=== PATIENT | male | born 1950 | race Caucasian/White ===

== ENCOUNTER 2017-08-07 17:13 | Inpatient (IN) | payer OTHER ==
[~2017-08-07] VITALS: Ht 177.8 cm; Wt 96.6 kg
[2017-08-07] MEDS ORDERED: KETOROLAC TROMETHAMINE 30 MG/ML VIAL IV STA (17:24)
[2017-08-07] MEDS ORDERED: ONDANSETRON INJ 2 MG/ML 2 ML VIAL IV STA (17:24)
[2017-08-07] MEDS ORDERED: LIDODERM (LIDOCAINE) PATCH 5% TD STA (17:24)
[2017-08-07] MEDS ORDERED: HYDROmorphone INJ 1 MG/ML SYR IV STA (17:24)
--- NOTE | 2017-08-07 17:25 | EMERGENCY ROOM VISIT NOTE ---
History Report prepared by Jeffrey: Mckayla Saenz Under the Supervision of: Dr. Oscar Vega M.D. First contact with patient: 17:16 Stated Complaint: BACK & RIB PAIN History of Present Illness The patient is a 67 year old male who presents to the Emergency Room with complaints of worsening left sided back and rib pain beginning 4 days ago. The patient notes that 4 days ago he was pulled over by his dog and fell on his back. Seven years ago, the patient was diagnosed with cracked ribs and states his pain is identical to his pain then. The patient's pain worsens with walking. This morning, the patient coughed and his back pain worsened. He has been taking Ibuprofen over the past four days and last took it 9 hours ago. The patient laid down this afternoon and has not been able to sit up since. The patient denies any abdominal pain and is not on any blood thinners. Source of History: patient Onset: 4 days ago Position: other (rib) Timing: worsening Modifying Factors (Worsening): movement Associated Symptoms: + back pain, No abdominal pain Review of Systems See HPI for pertinent positives & negatives. A total of 10 systems reviewed and were otherwise negative. Past Medical & Surgical Medical Problems: (1) No Known Active Medical Problems Family History No pertinent family history stated. Social History Alcohol Use: occasionally Marital Status: Current/Historical Medications Scheduled PRN Ibuprofen (Motrin), 400 MG PO TID PRN for Headache or Pain Allergies Coded Allergies: No Known Allergies (Unverified , 08/07/17) Physical Exam Vital Signs Date Time Temp Pulse Resp B/P (MAP) Pulse Ox O2 Delivery O2 Flow Rate FiO2 08/07/17 19:42 139/75 08/07/17 18:43 69 19 90 08/07/17 18:42 131/90 08/07/17 18:30 142/79 08/07/17 18:28 77 20 93 08/07/17 18:13 75 23 08/07/17 18:09 70 08/07/17 18:00 134/79 08/07/17 17:46 94 Room Air 08/07/17 17:46 94 Room Air 08/07/17 17:20 36.7 84 20 157/93 94 Room Air Physical Exam GENERAL: Patient is a healthy-appearing well-nourished male HEAD: Normocephalic atraumatic EYES: Ocular movements intact pupils equal and react to light OROPHARYNX mucous membranes are moist no exudates present no erythema or edema present NECK: Supple no nuchal rigidity CHEST: Exquisitely tender to left 10 and 11 rib area. The patient is unable to rollover. LUNGS: Clear and equal to auscultation CARDIAC: Normal S1 and S2 ABDOMEN: Soft nontender no guarding BACK: No CVA tenderness EXTREMITIES: No pain upon palpation normal muscle strength in all groups no clubbing cyanosis or edema NEURO: Patient is following commands and answering questions appropriately. Alert and oriented x3 Cranial Nerves 2-12 grossly intact Medical Decision & Procedures ER Provider Diagnostic Interpretation: Radiology results as stated below per my review and radiologist interpretation: (CHEST) THORAX WITH FINDINGS: Chili Maker topogram: Unremarkable. On soft tissue windows, normal thyroid and thoracic inlet. Asymmetric prominence of left axillary lymph nodes, which measure up to 8 mm in the short axis. Enlarged mediastinal lymph nodes with conglomerate lymphadenopathy in the pretracheal and subcarinal regions. Conglomerate bilateral hilar lymphadenopathy. Prominent right cardiophrenic lymph node. Atherosclerosis of the aorta. Minimal aortic valve and coronary artery calcification. Normal heart size. Trace left pleural effusion. No pericardial effusion. Congenital hypoplasia of the medial segments of the left hepatic lobe. 2 well-defined hypodensities in the liver indeterminate but likely hepatic cysts. Multiple enlarged mesenteric lymph nodes noted. Borderline enlarged retroperitoneal lymphadenopathy. On lung windows, bilateral extensive bandlike opacities at the lung bases with associated lower lobe volume loss, likely atelectasis. No other focal infiltrate. Airways patent. On bone windows, degenerative changes of the spine. Lucent lesion in the left humeral head. Suggestion of nondisplaced anterior right rib fractures involving the right third through sixth ribs. Suggestion of multiple old healed posterior right rib fractures. Acute fracture of the left posterior eighth through 10th ribs. IMPRESSION: 1. Bilateral acute rib fractures. 2. Extensive bibasilar opacities with volume loss likely atelectasis. 3. Extensive lymphadenopathy prominently involving the mediastinum and shanel with additional sites of involvement as above, including below the diaphragm. This is highly concerning for metastatic disease or lymphoma. 4. Indeterminate lucent lesion in the left humeral head. Metastatic lesion not excluded. Electronically signed by: Marcos Gomez M.D. THORACIC SPINE WITHOUT FINDINGS: Chili Maker topogram: Unremarkable. Normal thoracic kyphosis. Vertebral bodies maintain normal height and alignment. Intervertebral disc spaces preserved. No acute fracture or subluxation. Acute rib fractures better appreciated on dedicated chest CT. Multilevel degenerative changes. Osseous neural foraminal narrowing suggested in the mid to lower thoracic spine greater on the left. Paraspinal soft tissues remarkable for partially visualized extensive lymphadenopathy better appreciated on CT chest. IMPRESSION: 1. No acute osseous injury of the thoracic spine. 2. Please see separately dictated CT of the chest for description of acute bilateral rib fractures and extensive lymphadenopathy. Electronically signed by: Marcos Gomez M.D. Laboratory Results 08/07/17 17:40 Red Blood Count 4.77, Mean Corpuscular Volume 87.8, Mean Corpuscular Hemoglobin 30.6, Mean Corpuscular Hemoglobin Concent 34.8, Mean Platelet Volume 8.8, Neutrophils (%) (Auto) 83.0, Lymphocytes (%) (Auto) 8.6, Monocytes (%) (Auto) 7.0, Eosinophils (%) (Auto) 0.6, Basophils (%) (Auto) 0.4, Neutrophils # (Auto) 5.92, Lymphocytes # (Auto) 0.61, Monocytes # (Auto) 0.50, Eosinophils # (Auto) 0.04, Basophils # (Auto) 0.03 08/07/17 17:40 Test 08/07/17 17:40 White Blood Count 7.13 K/uL (4.8-10.8) Red Blood Count 4.77 M/uL (4.7-6.1) Hemoglobin 14.6 g/dL (14.0-18.0) Hematocrit 41.9 % (42-52) Mean Corpuscular Volume 87.8 fL (80-100) Mean Corpuscular Hemoglobin 30.6 pg (25-34) Mean Corpuscular Hemoglobin Concent 34.8 g/dl (32-36) Platelet Count 171 K/uL (130-400) Mean Platelet Volume 8.8 fL (7.4-10.4) Neutrophils (%) (Auto) 83.0 % Lymphocytes (%) (Auto) 8.6 % Monocytes (%) (Auto) 7.0 % Eosinophils (%) (Auto) 0.6 % Basophils (%) (Auto) 0.4 % Neutrophils # (Auto) 5.92 K/uL (1.4-6.5) Lymphocytes # (Auto) 0.61 K/uL (1.2-3.4) Monocytes # (Auto) 0.50 K/uL (0.11-0.59) Eosinophils # (Auto) 0.04 K/uL (0-0.5) Basophils # (Auto) 0.03 K/uL (0-0.2) RDW Standard Deviation 42.2 fL (36.4-46.3) RDW Coefficient of Variation 13.2 % (11.5-14.5) Immature Granulocyte % (Auto) 0.4 % Immature Granulocyte # (Auto) 0.03 K/uL (0.00-0.02) Anion Gap 7.0 mmol/L (3-11) Est Creatinine Clear Calc Drug Dose 94.3 ml/min Estimated GFR () 100.7 Estimated GFR (Non- 86.9 BUN/Creatinine Ratio 27.5 (10-20) Calcium Level 8.9 mg/dl (8.5-10.1) Total Bilirubin 0.5 mg/dl (0.2-1) Direct Bilirubin 0.2 mg/dl (0-0.2) Aspartate Amino Transf (AST/SGOT) 16 U/L (15-37) Alanine Aminotransferase (ALT/SGPT) 23 U/L (12-78) Alkaline Phosphatase 87 U/L (45-117) Total Creatine Kinase 96 U/L (39-308) Total Protein 6.8 gm/dl (6.4-8.2) Albumin 3.7 gm/dl (3.4-5.0) Labs reviewed by ED physician. Medications Administered Medications (Trade) Dose Ordered Sig/Ely Route Start Time Stop Time Status Last Admin Dose Admin Hydromorphone HCl (Dilaudid Inj) 1 mg NOW STAT IV 08/07/17 17:24 08/07/17 17:26 DC 08/07/17 17:24 1 MG Ketorolac Tromethamine (Toradol Inj) 30 mg NOW STAT IV 08/07/17 17:24 08/07/17 17:26 DC 08/07/17 18:01 30 MG Lidocaine (Lidoderm Patch 5%) 1 patch NOW STAT TD 08/07/17 17:24 08/07/17 17:26 DC 08/07/17 17:24 1 PATCH Ondansetron HCl (Zofran Inj) 4 mg NOW STAT IV 08/07/17 17:24 08/07/17 17:26 DC 08/07/17 18:01 4 MG ED Course 1716: Past medical records reviewed. The patient was evaluated in room C10. A complete history and physical examination was performed. 1723: Zofran Inj 4 mg IV, Lidocaine 1 patch TD, Toradol Inj 30 mg IV, Dilaudid Inj 1 mg IV. 1929: I updated the patient on his test results. 1936: I discussed the patient's case with Dr. Zuniga, he has agreed to evaluate the patient for further management and care. Medical Decision Differential diagnosis: Etiologies such as fracture, dislocation, intra-abdominal, pneumothorax, intrathoracic , intracranial, neurologic, as well as other traumatic pathologies were entertained. This is a 67-year-old male who presents emergency department complaining of low back pain after a fall at home several days ago. The patient is exquisitely tender to the left 11th and 10th rib area. An IV was established, the patient was given Dilaudid. His laboratory results are essentially normal. The patient was sent for CAT scan of his chest as well as his thoracic spine based on where his pain was. Serial abdominal examinations were performed on the patient in the emergency department and no tended to the patient exhibit a surgical abdomen or abdominal tenderness. The patient was sent for a CAT scan which was concerning for multiple rib fractures along with a large amount of lymphadenopathy. This patient does not have a primary care physician and based on this along with the fact and I'm having difficulty getting his pain under control I felt he should be admitted for a cancer workup. I did discuss the case with the hospitalist service who agreed to admit the patient. Patient was in agreement with the treatment plan. Blood Pressure Screening Patient's blood pressure: Elevated blood pressure Blood pressure disposition: Referred to PCP (evaluated by hospitalist) Consults Time Called: 1929 Consulting Physician: Dr. Zuniga Returned Call: 1936 I discussed the patient's case with Dr. Zuniga, he has agreed to evaluate the patient for further management and care. Impression Primary Impression: Fall Additional Impressions: Rib fractures Lymphadenopathy Scribe Attestation The scribe's documentation has been prepared under my direction and personally reviewed by me in its entirety. I confirm that the note above accurately reflects all work, treatment, procedures, and medical decision making performed by me. Departure Information Dispostion Being Evaluated By Hospitalist Referrals No Doctor, Assigned (PCP) Problem Qualifiers Primary Impression: Fall Encounter type: initial encounter Qualified Codes: W19.XXXA - Unspecified fall, initial encounter Additional Impressions: Rib fractures Encounter type: initial encounter Rib fracture type: multiple ribs Fracture type: closed Laterality: left Qualified Codes: S22.42XA - Multiple fractures of ribs, left side, initial encounter for closed fracture
[2017-08-07 18:07] LABS: BASO % 0.4 %; BASO ABS # 0.03 K/uL (0-0.2); COMPLETE YES; EOS % 0.6 %; HEMATOCRIT 41.9 % (42-52); IG% 0.4 %; LYMPH % 8.6 %; LYMPH ABS # 0.61 K/uL (1.2-3.4); MEAN CELL VOLUME 87.8 fL (80-100); MEAN CORPUSCULAR HEMOGLOBIN 30.6 pg (25-34); MEAN CORPUSCULAR HGB CONC 34.8 g/dl (32-36); MEAN PLATELET VOLUME 8.8 fL (7.4-10.4); PLATELET COUNT 171 K/uL (130-400); RED BLOOD COUNT 4.77 M/uL (4.7-6.1); WHITE BLOOD COUNT 7.13 K/uL (4.8-10.8)
[2017-08-07 18:36] LABS: BUN/CREATININE RATIO 27.5 (10-20); CALCIUM 8.9 mg/dl (8.5-10.1); CREATININE 0.91 mg/dl (0.60-1.40); POTASSIUM 3.8 mmol/L (3.5-5.1)
[2017-08-07] MEDS ORDERED: IBUP-1459 PO (18:54)
[2017-08-07] MEDS ORDERED: OPTIRAY 320 IV PRN (19:15)
--- NOTE | 2017-08-07 19:23 | DIAGNOSTIC IMAGING REPORT ---
(CHEST) THORAX WITH CLINICAL HISTORY: 67 years-old Male presenting with Pt c/o fall, left sided rib pain . TECHNIQUE: Multidetector CT imaging of the chest was performed after the administration of intravenous contrast. IV contrast: None. A dose lowering technique was used consistent with the principles of ALARA (as low as reasonably achievable). COMPARISON: None. CT DOSE (mGy.cm): The estimated cumulative dose is 465.32. FINDINGS: Typer topogram: Unremarkable. On soft tissue windows, normal thyroid and thoracic inlet. Asymmetric prominence of left axillary lymph nodes, which measure up to 8 mm in the short axis. Enlarged mediastinal lymph nodes with conglomerate lymphadenopathy in the pretracheal and subcarinal regions. Conglomerate bilateral hilar lymphadenopathy. Prominent right cardiophrenic lymph node. Atherosclerosis of the aorta. Minimal aortic valve and coronary artery calcification. Normal heart size. Trace left pleural effusion. No pericardial effusion. Congenital hypoplasia of the medial segments of the left hepatic lobe. 2 well-defined hypodensities in the liver indeterminate but likely hepatic cysts. Multiple enlarged mesenteric lymph nodes noted. Borderline enlarged retroperitoneal lymphadenopathy. On lung windows, bilateral extensive bandlike opacities at the lung bases with associated lower lobe volume loss, likely atelectasis. No other focal infiltrate. Airways patent. On bone windows, degenerative changes of the spine. Lucent lesion in the left humeral head. Suggestion of nondisplaced anterior right rib fractures involving the right third through sixth ribs. Suggestion of multiple old healed posterior right rib fractures. Acute fracture of the left posterior eighth through 10th ribs. IMPRESSION: 1. Bilateral acute rib fractures. 2. Extensive bibasilar opacities with volume loss likely atelectasis. 3. Extensive lymphadenopathy prominently involving the mediastinum and shanel with additional sites of involvement as above, including below the diaphragm. This is highly concerning for metastatic disease or lymphoma. 4. Indeterminate lucent lesion in the left humeral head. Metastatic lesion not excluded. Electronically signed by: Marcos Gomez M.D. 08/07/2017 7:22 PM Dictated Date/Time: 08/07/2017 7:15 PM
--- NOTE | 2017-08-07 19:25 | DIAGNOSTIC IMAGING REPORT ---
THORACIC SPINE WITHOUT CLINICAL HISTORY: 67 years-old Male presenting with Pt c/o left sided back pain . TECHNIQUE: Multidetector CT of the thoracic spine was performed without the use of intravenous contrast. IV contrast: None. A dose lowering technique was used consistent with the principles of ALARA (as low as reasonably achievable). COMPARISON: None. CT DOSE (mGy.cm): The estimated cumulative dose is 465.32 mGy.cm. FINDINGS: Transplant Immunologist topogram: Unremarkable. Normal thoracic kyphosis. Vertebral bodies maintain normal height and alignment. Intervertebral disc spaces preserved. No acute fracture or subluxation. Acute rib fractures better appreciated on dedicated chest CT. Multilevel degenerative changes. Osseous neural foraminal narrowing suggested in the mid to lower thoracic spine greater on the left. Paraspinal soft tissues remarkable for partially visualized extensive lymphadenopathy better appreciated on CT chest. IMPRESSION: 1. No acute osseous injury of the thoracic spine. 2. Please see separately dictated CT of the chest for description of acute bilateral rib fractures and extensive lymphadenopathy. Electronically signed by: Marcos Gomez M.D. 08/07/2017 7:24 PM Dictated Date/Time: 08/07/2017 7:22 PM
[2017-08-07] MEDS ORDERED: LIDODERM (LIDOCAINE) PATCH 5% TD ONE (20:22)
[2017-08-07] MEDS ORDERED: ONDANSETRON INJ 2 MG/ML 2 ML VIAL IV PRN (20:30)
[2017-08-07] MEDS ORDERED: ACETAMINOPHEN 325 MG TAB PO PRN (20:30)
[2017-08-07] MEDS ORDERED: MoRPHine SULFATE 4 MG/ML 1 ML CARP\\VIAL IV PRN (20:30)
--- NOTE | 2017-08-07 21:28 | HISTORY & PHYSICAL EXAMINATION ---
DATE OF ADMISSION: 08/07/2017 The patient has no primary care doctor. History was obtained from the patient and records. CHIEF COMPLAINT: Left back pain. HISTORY OF PRESENT ILLNESS: Medical history is significant for mood disorder, currently not on medications. Patient is a [place] resident. 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 Four days ago, the patient was pulled by his dog at the park, leading him to fall on his left back. Px noted worsening L posterior pleuritic back pain reminiscent of rib fracture pain from about 7 years ago. No shortness of breath, no hemoptysis, no unusual weight loss. No abdominal pain. No hematuria. Intractable pain in the Emergency Room. MEDICAL HISTORY: As above. SURGERIES: Hernia surgery. HOME MEDICATIONS: Ibuprofen, as needed. ALLERGIES: No known drug allergies. FAMILY HISTORY: Heart disease. PERSONAL AND SOCIAL HISTORY: Nonsmoker. No chronic intake of alcoholic beverages. He was in the [employer] field prior to [employer]. REVIEW OF SYSTEMS: As per HPI, all 10 systems reviewed, all other ROS negative. PHYSICAL EXAMINATION: VITAL SIGNS: Blood pressure was noted to be 131/90, pulse rate 69, RR 19, temperature 36.7 and sats 94 on room air. GENERAL: Noted to be pleasant, in no respiratory distress. SKIN: Normal color. Warm. HEENT: [place] palpebral conjunctivae. No ptosis. Dry buccal mucosa. NECK: Supple. No tenderness. CHEST: Clear to auscultation. posterior left chest wall tenderness. HEART: Regular rate and rhythm. No murmur. ABDOMEN: Soft and nontender. EXTREMITIES: No edema. No gross deformities. No tenderness NEUROLOGIC: Coherent. No gross focality. LABORATORIES: Hemoglobin was noted to be 14.6, hematocrit 41.9, white cell count 10 and platelets of 171. Sodium 142, potassium 3.8 chloride 106, CO2 26, BUN 25, creatinine 0.9 and glucose 194. LFTs normal. CT of chest showed bilateral acute rib fractures, atelectasis and extensive lymphadenopathy involving the mediastinal and hilar with additional sites of involvement including below the diaphragm highly concerning for metastatic disease or lymphoma, Radiolucent lesion, left humerus humeral head. ASSESSMENT: 1. Intractable pain from L posterior rib fracture secondary to fall. 2. Incidental finding of a generalized lymphadenopathy Possible lymphoma 3. History mood disorder, stable off meds As per patient he was on meds years ago during a divorce. PLAN: GMF analgesia. PT OT eval outpatient Hematology-Oncology referral for lymphadenopathy DVT prophylaxis, Lovenox subQ. Full code. MTDD
[2017-08-07] MEDS ORDERED: NSS + 20MEQ KCL 1000ML 1,000 ML IV ONE (21:30)
[2017-08-07 21:50] LABS: PROTHROMBIN TIME (PATIENT) 11.1 SECONDS (9.0-12.0)
[2017-08-07 22:07] VITALS: O2SAT 94; Ht 177.8 cm; Wt 96.6 kg
[2017-08-07] MEDS: TRAMADOL HCL 50 MG TAB PO PRN (22:19)
[2017-08-07] MEDS: ENOXAPARIN 40 MG/0.4 ML SYR SQ SCH (23:30)
[2017-08-08] VITALS (7 sets, daily range): BP systolic 126–160; BP diastolic 76–90; PULSE 66–76; TEMP 36.1–37; O2SAT 93–95
[2017-08-08 07:06] LABS: BASO % 0.4 %; BASO ABS # 0.02 K/uL (0-0.2); COMPLETE YES; EOS % 0.9 %; HEMATOCRIT 40.9 % (42-52); IG% 0.7 %; LYMPH % 11.5 %; LYMPH ABS # 0.64 K/uL (1.2-3.4); MEAN CELL VOLUME 89.5 fL (80-100); MEAN CORPUSCULAR HEMOGLOBIN 30.4 pg (25-34); MEAN PLATELET VOLUME 8.7 fL (7.4-10.4); MONO % 8.6 %; NEUT % 77.9 %; PLATELET COUNT 159 K/uL (130-400); RED BLOOD COUNT 4.57 M/uL (4.7-6.1); WHITE BLOOD COUNT 5.58 K/uL (4.8-10.8)
[2017-08-08] MEDS: KETOROLAC TROMETHAMINE 15 MG/ML VIAL IV. PRN ×2 (07:50→14:22)
[2017-08-08] MEDS: LIDODERM (LIDOCAINE) PATCH 5% TD SCH (07:51)
--- NOTE | 2017-08-08 09:19 | Progress Note ---
Progress Note Date of Service Aug 08, 2017. Progress Note ATTENDING NOTE: 67 years-old Male presenting with Pt c/o fall, left sided rib pain . CT CHEST -INCIDENTAL FINDING : -Asymmetric prominence of left axillary lymph nodes, which measure up to 8 mm in the short axis. - Extensive lymphadenopathy prominently involving the mediastinum and shanel with additional sites of involvement as above, including below the diaphragm. This is highly concerning for metastatic disease or lymphoma. - Indeterminate lucent lesion in the left humeral head. Metastatic lesion not excluded. HEME ONC Consult requested will need tissue biopsy D/w Radiology ordered for USG guided biopsy of the Left axillary LN
--- NOTE | 2017-08-08 09:36 | Medical Consult ---
Consultation Date of Consultation: Aug 08, 2017. Attending Physician: Tati Sykes M.D. History of Present Illness Hematology/Oncology consult: Evaluation management of mediastinal and hilar lymphadenopathy. Date of consultation: 08/08/2017 HPI: 67-year-old male, who had an accidental fall in the park (he was pulled by his dog) last week on 08/04/2017, he complained of some left-sided chest pain , he took ibuprofen with some pain relief but then he had some slight cough and then he had sudden increasing left-sided chest pain, he came to the [facility] ER for further evaluation, found to have rib fracture involving the left 8th through 10th ribs. He had CT scan of the chest which also showed evidence of mediastinal and hilar lymphadenopathy. Hematology consulted for further evaluation of the lymphadenopathy noted in the recent imaging study. up an active He says that before that he was doing quite well, had no fever, no night sweats , no other systemic symptoms, no weight loss, he was not on any medication at home. He was quite up and active. REVIEW OF SYSTEMS: GENERAL: No change in weight, no weakness, no fatigue, no fever, no chills, some sweats present because of pain. SKIN: No skin rash, no bruising. HEAD: No new headache, no dizziness. EYES: No recent change in the vision, no diplopia, EARS: No earache no tinnitus, NOSE: No epistaxis, No nasal discharge or stuffiness, MOUTH: No sores, no dysphagia, no hoarseness of voice, NECK: No lumps, No swelling in thyroid area. No stiffness. PULMONARY: No cough, No shortness of breath, no hemoptysis, left-sided chest pain following recent fall with some rib fracture, No wheezing. CARDIOVASCULAR: No anginal chest pain, no PND, no orthopnea. No palpitation, no leg edema. No syncope. GASTROINTESTINAL: No abdominal pain, no nausea or vomiting. No diarrhea, No constipation. No blood in stool or black tarry stools. No abdominal distention. UROLOGIC: No burning urination. No hematuria. MUSCULOSKELETAL: No joint pain, No joint swelling, no muscle weakness. HEMATOLOGIC: No anemia, no bleeding disorder, No bruising. NEUROLOGIC: No seizures, no focal weakness, no speech difficulty, No memory disturbances. No tingling or numbness of the extremities. PSYCHIATRIC: No depression. No anxiety. No psychosis. SLEEP: No sleep disorder. Past medical and surgical history: He had a hernia surgery in the past, otherwise no other significant medical problem, no taking any medication at home. Social history: Nonsmoker, denies any ETOH abuse. 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 Family history: Not significant Medications: Please review is chart for detailed list of medications. Recently he took ibuprofen for symptom treatment of left-sided chest pain following a fall. Allergies: None On exam: - Alert and oriented x3, well built man, not in any distress. - HEENT: no icterus, no pallor, Throat: Normal. - Neck: No palpable cervical lymphadenopathy. - Chest: clear to auscultation. - Abdomen: soft, nontender, no hepatomegaly, no splenomegaly. - No focal neuro deficit. - Extremities: no finger clubbing, no leg edema. - No obvious palpable lymphadenopathy in the axilla but I could not palpate left axilla because of the pain. Lab: Blood workup done on 08/07/2017: -WBC 7100, H&H of 14.6/41.9, Platelet count of 171,000. ANC 5900, absolute lymphocyte count 610. -BUN/Creat: 25/0.9, normal liver function test. -LDH--> 166. -hepatitis C serology--> negative -Normal PT and PTT. Imaging: -CT scan of the chest done on 08/07/2017--> prominent left axilla lymph node measuring up to 8 mm, enlarged the mediastinal lymph nodes involving the pretracheal and subcarinal region, bilateral hilar lymphadenopathy noted. Trace left pleural effusion, possible hepatic cyst. Multiple enlarged mesenteric lymph nodes noted, borderline enlarged retroperitoneal lymphadenopathy noted. Nondisplaced the anterior right rib fracture involving the right 3rd through 6th ribs. Acute fracture noted involving the left posterior 8th through 10th ribs. Small lucent lesion left middle head noted. -CT scan of the thoracic spine done on 07/28/2017 showed no acute the bony injury to the thoracic spine noted. ASSESSMENT AND PLAN: 67-year-old male, who had an accidental fall with injury to the back and the left-sided chest, had increasing left-sided chest pain following slight cough, imaging study showed evidence of fracture involving the left 8 through 10th rib, also showed evidence of mediastinal hilar lymphadenopathy, small 8 mm left axillary lymph node also noted. He has no B symptoms, otherwise he is doing quite well. Normal LDH level. Normal blood counts noted. Normal kidney and liver function test noted. He does not any specific symptoms related to the underlying enlarged lymph nodes in the chest or in the axilla. I think we need a tissue diagnosis from the mediastinal lymph nodes or hilar lymph nodes for further evaluation. Ultrasound-guided FNA from the left axilla lymph node can be considered but may not be adequate if it is lymphoma. Will decide about further workup and treatment options after having definitive diagnosis in his case. Thanks for the consultation. Dr. Chon Swenson Hem/Onc (This note was completed using the dictation program Fluency Direct. As such, there may be misspellings, word substitutions, or other variations that should not change the essence of the clinical content of this encounter note. If there is need for further clarification, please direct questions to the provider listed above.) Past Medical/Surgical History Medical Problems: (1) Fall Status: Acute (2) Lymphadenopathy Status: Acute (3) Rib fractures Status: Acute Social History Smoking Status: Former Smoker Marital Status: Allergies Coded Allergies: No Known Allergies (Unverified , 08/07/17) Current Inpatient Medications Current Inpatient Medications Medications (Trade) Dose Ordered Sig/Ely Route Start Time Stop Time Status Last Admin Dose Admin Ioversol (Optiray 320) 120 ml UD PRN IV 08/07/17 19:15 08/11/17 19:14 Lidocaine (Lidoderm Patch 5%) 1 patch QAM TD 08/08/17 08:00 09/07/17 08:59 08/08/17 07:51 1 PATCH Miscellaneous (Remove Lidoderm Patch) 1 ea DAILY@21 N/A 08/07/17 21:00 09/06/17 20:59 08/07/17 22:01 1 EA Ketorolac Tromethamine (Toradol Inj) 15 mg Q6H PRN IV. 08/07/17 20:30 08/12/17 20:29 08/08/17 07:50 15 MG Tramadol HCl (Ultram Tab) not relieved by tylenol @ Q6H PRN PO 08/07/17 20:30 09/06/17 20:29 08/07/17 22:19 50 MG Ondansetron HCl (Zofran Inj) 4 mg Q6H PRN IV 08/07/17 20:30 09/06/17 20:29 Morphine Sulfate (MoRPHine SULFATE INJ) 4 mg Q4H PRN IV 08/07/17 20:30 08/21/17 20:29 08/08/17 03:45 4 MG Potassium Chloride/Sodium Chloride 1,000 ml @ 75 mls/hr [id number] ONCE IV 08/07/17 21:30 08/08/17 10:49 08/07/17 22:00 75 MLS/HR Enoxaparin Sodium (Lovenox Inj) 40 mg Q24H SQ 08/07/17 22:00 09/06/17 21:59 08/07/17 23:30 40 MG Acetaminophen (Tylenol Tab) 650 mg Q4H PRN PO 08/07/17 20:30 09/06/17 20:29 Physical Exam Date Time Temp Pulse Resp B/P (MAP) Pulse Ox O2 Delivery O2 Flow Rate FiO2 08/08/17 08:21 Room Air 08/08/17 07:54 36.7 76 20 135/87 (103) 93 08/08/17 04:05 36.2 75 20 126/76 (93) 94 Room Air 08/08/17 00:31 37.0 73 18 129/77 (94) 93 Room Air 08/08/17 00:00 Room Air 08/07/17 22:07 94 08/07/17 21:31 72 18 126/76 94 08/07/17 20:58 72 18 125/76 94 Room Air 08/07/17 19:42 139/75 08/07/17 18:43 69 19 90 08/07/17 18:42 131/90 08/07/17 18:30 142/79 08/07/17 18:28 77 20 93 08/07/17 18:13 75 23 08/07/17 18:09 70 08/07/17 18:00 134/79 08/07/17 17:46 94 Room Air 08/07/17 17:46 94 Room Air 08/07/17 17:20 36.7 84 20 157/93 94 Room Air Laboratory Results Last 24 Hours Test 08/07/17 17:40 08/07/17 17:43 08/08/17 06:48 08/08/17 06:49 White Blood Count 7.13 K/uL 5.58 K/uL Red Blood Count 4.77 M/uL 4.57 M/uL Hemoglobin 14.6 g/dL 13.9 g/dL Hematocrit 41.9 % 40.9 % Mean Corpuscular Volume 87.8 fL 89.5 fL Mean Corpuscular Hemoglobin 30.6 pg 30.4 pg Mean Corpuscular Hemoglobin Concent 34.8 g/dl 34.0 g/dl Platelet Count 171 K/uL 159 K/uL Mean Platelet Volume 8.8 fL 8.7 fL Neutrophils (%) (Auto) 83.0 % 77.9 % Lymphocytes (%) (Auto) 8.6 % 11.5 % Monocytes (%) (Auto) 7.0 % 8.6 % Eosinophils (%) (Auto) 0.6 % 0.9 % Basophils (%) (Auto) 0.4 % 0.4 % Neutrophils # (Auto) 5.92 K/uL 4.35 K/uL Lymphocytes # (Auto) 0.61 K/uL 0.64 K/uL Monocytes # (Auto) 0.50 K/uL 0.48 K/uL Eosinophils # (Auto) 0.04 K/uL 0.05 K/uL Basophils # (Auto) 0.03 K/uL 0.02 K/uL RDW Standard Deviation 42.2 fL 44.0 fL RDW Coefficient of Variation 13.2 % 13.4 % Immature Granulocyte % (Auto) 0.4 % 0.7 % Immature Granulocyte # (Auto) 0.03 K/uL 0.04 K/uL Prothrombin Time 11.1 SECONDS Prothromb Time International Ratio 1.0 Activated Partial Thromboplast Time 26.7 SECONDS Partial Thromboplastin Ratio 1.0 Sodium Level 139 mmol/L Potassium Level 3.8 mmol/L Chloride Level 106 mmol/L Carbon Dioxide Level 26 mmol/L Anion Gap 7.0 mmol/L Blood Urea Nitrogen 25 mg/dl Creatinine 0.91 mg/dl Est Creatinine Clear Calc Drug Dose 94.3 ml/min Estimated GFR () 100.7 Estimated GFR (Non- 86.9 BUN/Creatinine Ratio 27.5 Random Glucose 94 mg/dl Calcium Level 8.9 mg/dl Total Bilirubin 0.5 mg/dl Direct Bilirubin 0.2 mg/dl Aspartate Amino Transf (AST/SGOT) 16 U/L Alanine Aminotransferase (ALT/SGPT) 23 U/L Alkaline Phosphatase 87 U/L Total Creatine Kinase 96 U/L Total Protein 6.8 gm/dl Albumin 3.7 gm/dl Hepatitis C Antibody Screen NEG Bedside Glucose 87 mg/dl Lactate Dehydrogenase 166 U/L
--- NOTE | 2017-08-08 14:17 | DIAGNOSTIC IMAGING REPORT ---
ULTRASOUND-GUIDED FINE-NEEDLE ASPIRATION BIOPSY OF A LEFT AXILLARY LYMPH NODE CLINICAL HISTORY: Borderline enlarged left axillary lymph nodes COMPARISON STUDY: Chest CT dated 08/07/2017 FINDINGS: The risks of the procedure were explained the patient and informed consent was obtained. The patient was prepped in sterile fashion. Under ultrasound guidance, utilizing a 25-gauge needle, a sample for the patient's left axillary lymph nodes was obtained. Additional pathologic review revealed no lymphoid material. A second pass was performed and sent for flow cytometry. A third pass was performed and sent for both flow cytometry and cytologic diagnosis. Initial pathologic review confirms the presence of lymphoid material. Final pathology is pending at this time. IMPRESSION: Successful ultrasound-guided fine-needle aspiration biopsy of a borderline enlarged left axillary lymph node. Electronically signed by: Renny Boggs M.D. 08/08/2017 2:16 PM Dictated Date/Time: 08/08/2017 2:13 PM
--- NOTE | 2017-08-08 17:06 | Progress Note ---
Internal Med Progress Note Date of Service: Aug 08, 2017. Provider Documentation: SUBJECTIVE: feels fine had minimum pain with deep breath able to get out of bed , going to bathroom ' willing to walk on hallway no fever or chills ,no chest discomfort no abdominal pain or nausea OBJECTIVE: Vital Signs-as noted below Exam: General-very pleasant , well appearing gentleman , no sign of distress, comfortable ,conversing appropriately Eyes-sclera non icteric , PERRLA/EOMI ENT-normal exam , , normal oropharynx, hearing grossly normal Neck-trachea midline, no thyromegaly ,no mass , no cervical lymphadenopathy Lungs-clear to auscultate, no wheeze or rales, point tenderness on left lower rib cage , no bruise or ecchymosis Heart-regular S1/S2 , no JVD ,no carotid bruit, no lower ext edema Abdomen-soft, non tender, no organomegaly , bowel sound active Extremities-no rash , deformity or cyanosis Neuro-AAO x3, no focal deficit Lab data as noted below. ASSESSMENT & PLAN: FALL /MULTIPLE RIB FRACTURE had mechanical fall while walking the dog -last Sunday no dizzy spell or lightheadedness prior to fall CT chest shows bilateral multiple rib Fx -Rt sided 3rd to 6th Left sided 8th to 10 pain control incentive spirometry pt mentions of pleuritic chest pain has improved since admission MEDIASTINAL LYMPHADENOPATHY : incidental finding ; -CT scan of the chest done on 08/07/2017--> prominent left axilla lymph node measuring up to 8 mm, enlarged the mediastinal lymph nodes involving the pretracheal and subcarinal region, bilateral hilar lymphadenopathy noted. Trace left pleural effusion, possible hepatic cyst. Multiple enlarged mesenteric lymph nodes noted, borderline enlarged retroperitoneal lymphadenopathy noted. Nondisplaced the anterior right rib fracture involving the right 3rd through 6th ribs. Acute fracture noted involving the left posterior 8th through 10th ribs. Small lucent lesion left middle head noted. -CT scan of the thoracic spine done on 07/28/2017 showed no acute the bony injury to the thoracic spine noted. pt denies of any symptoms of wt loss, lack of appetite , tiredness or night sweat appreciate input form Heme OnC Dr Swenson pt underwent USg guided biopsy of LN of left axially region no pain pain or discomfort at the biopsy site pt will need out pt follow up with Heme Onc for pathology result and treatment option if biopsy is positive for Lymphoma DVT PROPHYLAXIS: low risk -very active at baseline SCD and teds ambulate DISPOSITION lives at home very active independent in ADL's will need Heme onc follow up as out pt does not have an established PCP willing to establish care at [facility] Vital Signs: Date Time Temp Pulse Resp B/P (MAP) Pulse Ox O2 Delivery O2 Flow Rate FiO2 08/09/17 08:10 36.5 69 18 134/79 (97) 91 Room Air 08/09/17 08:00 Room Air 08/09/17 04:09 36.3 73 20 159/90 (113) 95 Room Air 08/09/17 00:00 Room Air 08/08/17 23:51 36.7 69 18 151/89 (109) 95 Room Air 08/08/17 18:58 36.1 69 18 160/84 (109) 95 Room Air 08/08/17 16:00 Room Air 08/08/17 15:07 Room Air 08/08/17 15:07 37.0 70 20 133/82 (99) 94 08/08/17 11:50 36.4 66 22 148/90 (109) 95 Lab Results:
[2017-08-08] MEDS: ENOXAPARIN 40 MG/0.4 ML SYR SQ SCH (21:26)
[2017-08-08] MEDS ORDERED: CALCIUM CARBONATE 500 MG CHEWABLE PO ONE (23:49)
[2017-08-09] MEDS ORDERED: CALCIUM CARBONATE 500 MG CHEWABLE PO PRN
[2017-08-09] MEDS: TRAMADOL HCL 50 MG TAB PO PRN ×3 (00:02→14:21)
[2017-08-09 04:09] VITALS: BP 159/90; PULSE 73; TEMP 36.3; O2SAT 95
[2017-08-09 08:10] VITALS: BP 134/79; PULSE 69; TEMP 36.5; O2SAT 91
[2017-08-09] MEDS: LIDODERM (LIDOCAINE) PATCH 5% TD SCH (08:42)
[2017-08-09 11:08] VITALS: BP 136/82; PULSE 74; TEMP 36.2; O2SAT 93
[2017-08-09 12:32] VITALS: BP 136/82; PULSE 74; TEMP 36.2; O2SAT 93
[2017-08-09] MEDS ORDERED: ULT50X PO (13:02)
--- NOTE | 2017-08-09 13:05 | Discharge Instructions ---
Discharge Instructions Date of Service Aug 09, 2017. Admission Reason for Admission: Rib Fractures Discharge Discharge Diagnosis / Problem: RIB FRACTURE /MEDIASTINAL LYMPH NODE ENLARGEMENT Discharge Goals Goal(s): Decrease discomfort, Improve function, Increase independence, Improve disease control, Diagnostic testing, Therapeutic intervention Activity Recommendations Activity Limitations: resume your previous activity . Instructions / Follow-Up Instructions / Follow-Up HOSPITAL FOLLOW UP : 08/15/2017 1:00 PM Babs Lee MD General Internal Medicine [facility] HEME ONC FOLLOW UP :08/27/2017 12:45 PM Chon Swenson MD Hematology/Oncology [facility] Diet Patient's current hospital diet: Regular Diet Discharge Diet Recommended Diet: Regular Diet Pending Studies Studies pending at discharge: no Medical Emergencies . Who to Call and When: Medical Emergencies: If at any time you feel your situation is an emergency, please call 911 immediately. . Non-Emergent Contact Non-Emergency issues call your: Primary Care Provider . . "Provider Documentation" section prepared by Tati Sykes. . VTE Core Measure Inpt VTE Proph given/why not?: Luna Bhatt, SCD's
--- NOTE | 2017-08-09 20:05 | Discharge Summary ---
Discharge Summary Date of Service Aug 09, 2017. Discharge Summary Admission Date: Aug 07, 2017 at 20:22 Discharge Date: Aug 09, 2017 Discharge Disposition: Home Principal Diagnosis: RIB FRACTURE /MEDIASTINAL LYMPH NODE ENLARGEMENT Procedures: USG GUIDED AXILLARY LYMPH NODE BIOPSY CT CHEST with CONTRAST : IMPRESSION: 1. Bilateral acute rib fractures. 2. Extensive bibasilar opacities with volume loss likely atelectasis. 3. Extensive lymphadenopathy prominently involving the mediastinum and shanel with additional sites of involvement as above, including below the diaphragm. This is highly concerning for metastatic disease or lymphoma. 4. Indeterminate lucent lesion in the left humeral head. Metastatic lesion not excluded. CT CERVICAL SPINE : IMPRESSION: 1. No acute osseous injury of the thoracic spine. 2. Please see separately dictated CT of the chest for description of acute bilateral rib fractures and extensive lymphadenopathy. Consultations: HEME ONC ; DR SWENSON Medication Reconciliation New Medications: Tramadol HCl (Tramadol HCl) 50 Mg Tab 50 MG PO Q6H PRN for Pain, #30 TAB Continued Medications: Ibuprofen (Motrin) 400 Mg Tab 400 MG PO TID PRN for Headache or Pain, TAB PRN Referrals At Discharge Follow up Referrals: Oncology/Hematology Referral - 08/27/17 with Chon Swenson M.D. Physician Referral - 08/15/17 with Babs LEE M.D. Admission Information HPI (per Admitting provider): DATE OF ADMISSION: 08/07/2017 The patient has no primary care doctor. History was obtained from the patient and records. CHIEF COMPLAINT: Left back pain. HISTORY OF PRESENT ILLNESS: Medical history is significant for mood disorder, currently not on medications. Patient is a [place] resident. 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 Four days ago, the patient was pulled by his dog at the park, leading him to fall on his left back. Px noted worsening L posterior pleuritic back pain reminiscent of rib fracture pain from about 7 years ago. No shortness of breath, no hemoptysis, no unusual weight loss. No abdominal pain. No hematuria. Intractable pain in the Emergency Room. MEDICAL HISTORY: As above. SURGERIES: Hernia surgery. HOME MEDICATIONS: Ibuprofen, as needed. ALLERGIES: No known drug allergies. FAMILY HISTORY: Heart disease. PERSONAL AND SOCIAL HISTORY: Nonsmoker. No chronic intake of alcoholic beverages. He was in the hotel management field prior to longterm. Physical Exam (per Admitting): REVIEW OF SYSTEMS: As per HPI, all 10 systems reviewed, all other ROS negative. PHYSICAL EXAMINATION: VITAL SIGNS: Blood pressure was noted to be 131/90, pulse rate 69, RR 19, temperature 36.7 and sats 94 on room air. GENERAL: Noted to be pleasant, in no respiratory distress. SKIN: Normal color. Warm. HEENT: [place] palpebral conjunctivae. No ptosis. Dry buccal mucosa. NECK: Supple. No tenderness. CHEST: Clear to auscultation. posterior left chest wall tenderness. HEART: Regular rate and rhythm. No murmur. ABDOMEN: Soft and nontender. EXTREMITIES: No edema. No gross deformities. No tenderness NEUROLOGIC: Coherent. No gross focality. Hospital Course FALL /MULTIPLE RIB FRACTURE had mechanical fall while walking the dog -last Sunday no dizzy spell or lightheadedness prior to fall CT chest shows bilateral multiple rib Fx -Rt sided 3rd to 6th Left sided 8th to 10 pain control incentive spirometry pt mentions of pleuritic chest pain has improved since admission MEDIASTINAL LYMPHADENOPATHY : incidental finding ; -CT scan of the chest done on 08/07/2017--> prominent left axilla lymph node measuring up to 8 mm, enlarged the mediastinal lymph nodes involving the pretracheal and subcarinal region, bilateral hilar lymphadenopathy noted. Trace left pleural effusion, possible hepatic cyst. Multiple enlarged mesenteric lymph nodes noted, borderline enlarged retroperitoneal lymphadenopathy noted. Nondisplaced the anterior right rib fracture involving the right 3rd through 6th ribs. Acute fracture noted involving the left posterior 8th through 10th ribs. Small lucent lesion left middle head noted. -CT scan of the thoracic spine done on 07/28/2017 showed no acute the bony injury to the thoracic spine noted. pt denies of any symptoms of wt loss, lack of appetite , tiredness or night sweat appreciate input form Heme OnC Dr Swenson pt underwent USg guided biopsy of LN of left axially region no pain pain or discomfort at the biopsy site pt will need out pt follow up with Heme Onc for pathology result and treatment option if biopsy is positive for Lymphoma DVT PROPHYLAXIS: low risk -very active at baseline SCD and teds ambulate DISPOSITION lives at home very active independent in ADL's will need Heme onc follow up as out pt does not have an established PCP willing to establish care at [facility] Total time spent on discharge = 40 MINS This includes examination of the patient, discharge planning, medication reconciliation, and communication with other providers. Discharge Instructions Discharge Instructions Date of Service Aug 09, 2017. Admission Reason for Admission: Rib Fractures Discharge Discharge Diagnosis / Problem: RIB FRACTURE /MEDIASTINAL LYMPH NODE ENLARGEMENT Discharge Goals Goal(s): Decrease discomfort, Improve function, Increase independence, Improve disease control, Diagnostic testing, Therapeutic intervention Activity Recommendations Activity Limitations: resume your previous activity . Instructions / Follow-Up Instructions / Follow-Up HOSPITAL FOLLOW UP : 08/15/2017 1:00 PM Babs Lee MD General Internal Medicine [facility] HEME ONC FOLLOW UP :08/27/2017 12:45 PM Chon Swenson MD Hematology/Oncology [facility] Diet Patient's current hospital diet: Regular Diet Discharge Diet Recommended Diet: Regular Diet Pending Studies Studies pending at discharge: no Medical Emergencies . Who to Call and When: Medical Emergencies: If at any time you feel your situation is an emergency, please call 911 immediately. . Non-Emergent Contact Non-Emergency issues call your: Primary Care Provider . . "Provider Documentation" section prepared by Tati Sykes. . VTE Core Measure Inpt VTE Proph given/why not?: Luna Bhatt, SCD's Additional Copies To Chon Swenson M.D. RAJ, Anitha ., M.D.
--- NOTE | 2017-08-12 08:36 | EDITING REQUIRED CODING QUERY ---
PATHOLOGY To promote full compliance with coding requirements relating to patient care, physician participation is requested in all cases of case management rn uncertainty. Please assist us with the question(s) below: Please review the Pathology report and please document any relevant diagnosis(es) below: Diagnosis(es):Non Hodgkin's B cell Lymphoma Thank you Sheba Leroy
== END 2017-08-09 14:47 | disposition home or self-care (01) | DRG 988 ==
LOC: C.EDC 17:14 → C.4E 20:22 → ENRESERV 20:36
PROVIDERS: ADMIT Hospitalist; ATTEND Hospitalist
PROC: 07963ZX Drainage of Left Axillary Lymphatic, Percutaneous Approach, Diagnostic (ICD-10-PCS; principal; 2017-08-08)
DX: S22.43XA Multiple fractures of ribs, bilateral, initial encounter for closed fracture (principal); C85.14 Unspecified B-cell lymphoma, lymph nodes of axilla and upper limb; W18.39XA Other fall on same level, initial encounter; Y93.K1 Activity, walking an animal; Y92.830 Public park as the place of occurrence of the external cause; Y99.8 Other external cause status; Z86.59 Personal history of other mental and behavioral disorders; Z82.49 Family history of ischemic heart disease and other diseases of the circulatory system

== ENCOUNTER 2017-09-23 12:06 | Emergency (ER) | payer OTHER ==
[~2017-09-23] VITALS: Ht 177.8 cm; Wt 97.3 kg
[~2017-09-23 12:06] MED LIST: IBUP-1459 PO; ULT50X PO
[2017-09-23 12:10] VITALS: Ht 177.8 cm; Wt 97.3 kg
[2017-09-23] MEDS ORDERED: OPTIRAY 320 IV PRN (12:30)
--- NOTE | 2017-09-23 12:44 | DIAGNOSTIC IMAGING REPORT ---
CHEST ONE VIEW PORTABLE CLINICAL HISTORY: EVALUATE ALTERED MENTAL STATUS/WEAKNESS COMPARISON STUDY: CT chest 08/07/2017 FINDINGS: Chronic bibasilar atelectatic change. Mid and upper lungs are clear. No evidence pneumothorax. Heart top limits normal terms of size. IMPRESSION: Chronic bibasilar atelectasis. Otherwise negative study. The above report was generated using voice recognition software. It may contain grammatical, syntax or spelling errors. Electronically signed by: Quinton Odonnell M.D. 09/23/2017 12:43 PM Dictated Date/Time: 09/23/2017 12:41 PM
[2017-09-23 13:29] LABS: BASO % 0.5 %; BASO ABS # 0.03 K/uL (0-0.2); EOS % 0.8 %; EOS ABS # 0.05 K/uL (0-0.5); HEMATOCRIT 43.4 % (42-52); HEMOGLOBIN 15.5 g/dL (14.0-18.0); IG# 0.03 K/uL (0.00-0.02); LYMPH % 10.9 %; MEAN CELL VOLUME 88.6 fL (80-100); MEAN CORPUSCULAR HEMOGLOBIN 31.6 pg (25-34); MEAN CORPUSCULAR HGB CONC 35.7 g/dl (32-36); MEAN PLATELET VOLUME 8.6 fL (7.4-10.4); MONO % 9.2 %; MONO ABS # 0.59 K/uL (0.11-0.59); NEUT % 78.1 %; PLATELET COUNT 199 K/uL (130-400); RED CELL DISTRIBUTION WIDTH CV 13.3 % (11.5-14.5); RED CELL DISTRIBUTION WIDTH SD 43.6 fL (36.4-46.3)
[2017-09-23 13:38] LABS: PTT PATIENT 25.7 SECONDS (21.0-31.0)
[2017-09-23 13:49] LABS: CALCIUM 9.3 mg/dl (8.5-10.1); CREATININE 0.88 mg/dl (0.60-1.40); POTASSIUM 4.1 mmol/L (3.5-5.1)
--- NOTE | 2017-09-23 14:19 | EMERGENCY ROOM VISIT NOTE ---
History Report prepared by Jeffrey: Leta Conway Under the Supervision of: Dr. Tee Trejo M.D. First contact with patient: 12:16 Chief Complaint: SWELLING TO EXTREMITY Stated Complaint: WOUND RECHECK History of Present Illness The patient is a 67 year old male who presents to the Emergency Room with complaints of worsening swelling to his neck starting three days ago. The patient states that he had a lymph node removed from his neck by Dr. Nesbitt at [facility] four days ago. He states that since then his neck has been very swollen. He reports that he has been icing it like they told him, but states that by the middle of the night or morning, it is so swollen he has difficulty swallowing. He reports that it feels like he "swallowed a cantaloupe." He complains of also having some labored breathing from the Lymphoma. The patient complains of an irritation from his neck that gives him a headache and fatigue from not being able to sleep. He states that this has not gotten better since the surgery. The patient notes that he has been taking Tylenol for pain since he still has neck discomfort and denied taking narcotics that Dr. Nesbitt wanted to prescribe. He notes it has not offered much relief. The patient denies fever and chills. Source of History: patient Onset: 3 days ago Position: neck Quality: other (swollen) Timing: worsening Modifying Factors (Relieving): ice Associated Symptoms: + headache, + SOB, + fatigue, No fevers, No chills Review of Systems See HPI for pertinent positives & negatives. A total of 10 systems reviewed and were otherwise negative. Past Medical & Surgical Medical Problems: (1) Hx of fracture of rib (2) Lymphoma Family History No pertinent family history Social History Smoking Status: Never Smoker Alcohol Use: occasionally Marital Status: Housing Status: lives with family Occupation Status: retired Current/Historical Medications Scheduled PRN Ibuprofen (Motrin), 400 MG PO TID PRN for Headache or Pain Tramadol HCl (Tramadol HCl), 50 MG PO Q6H PRN for Pain Allergies Coded Allergies: No Known Allergies (Unverified , 08/07/17) Physical Exam Vital Signs Date Time Temp Pulse Resp B/P (MAP) Pulse Ox O2 Delivery O2 Flow Rate FiO2 09/23/17 15:26 36.4 91 18 145/97 96 09/23/17 12:10 36.4 91 18 161/107 96 Room Air Physical Exam GENERAL: Patient is in no acute distress. HEENT: No acute trauma, normocephalic atraumatic, mucous membranes moist, no nasal congestion, no scleral icterus. NECK: No stridor. Has a bandage to the right neck consistent with noted surgery. No excessive bleeding. A little bit of surrounding contusion. No erythema. The area is swollen. LUNGS: Decreased breath sounds on the right side. Lungs are clear. No wheezing or rhonchi. HEART: Without murmurs gallops or rubs, regular rate and rhythm. ABDOMEN: Soft, nontender, bowel sounds positive, no hernias, no peritonitis. EXTREMITIES: No cyanosis or edema, full range of motion of all the joints without pain or difficulty, no signs for acute trauma. NEUROLOGIC: Oriented x 3, no acute motor or sensory deficits, no focal weakness. SKIN: No rash, no jaundice, no diaphoresis. Medical Decision & Procedures ER Provider Diagnostic Interpretation: Radiology results as stated below per my review and radiologist interpretation: CHEST ONE VIEW PORTABLE CLINICAL HISTORY: EVALUATE ALTERED MENTAL STATUS/WEAKNESS COMPARISON STUDY: CT chest 08/07/2017 FINDINGS: Chronic bibasilar atelectatic change. Mid and upper lungs are clear. No evidence pneumothorax. Heart top limits normal terms of size. IMPRESSION: Chronic bibasilar atelectasis. Otherwise negative study. The above report was generated using voice recognition software. It may contain grammatical, syntax or spelling errors. Electronically signed by: Quinton Odonnell M.D. 09/23/2017 12:43 PM Dictated Date/Time: 09/23/2017 12:41 PM SOFT TISSUE NECK WITH CLINICAL HISTORY: poss hematoma with airway compromise--surgery 4 days ago r neck TECHNIQUE: Transaxial acquisition with multi axial reformatted images COMPARISON STUDY: None FINDINGS: Moderate bilateral cervical adenopathy. Subcutaneous air is noted lateral to the right platysmas muscle transaxial image 218. This is immediately anterior to a cervical node. Deep to this is a small partially air-containing collection measuring 1.5 cm at maximum. Maximum cephalocaudal dimension is approximately 3.0 cm. This may represent a small hematoma with postoperative air. I cannot entirely exclude the possibility of abscess although with that recent surgical procedure this is perhaps less likely unless clinically indicated otherwise. Major salivary glands are unremarkable. The parotid and submandibular glands are unremarkable. Findings of moderate cervical adenopathy primarily in the mid to lower cervical chains. This is seen along the posterior aspect of the upper cervical chains deep to the sternocleidomastoid musculature. Maximum linear dimension of a right posterior cervical node is 2 cm. Additional nodes throughout the cervical and submandibular regions are noted bilaterally with supraclavicular and retroclavicular nodes measuring up to 2.8 cm. The thyroid appears symmetric. There is no significant subglottic edema. There is closure of the vocal cords most likely secondary to patient phonating during the study. There is mild edematous change of the hypopharynx. There is moderate narrowing of the airway at that site. IMPRESSION: 1. Complex air and fluid containing somewhat linear structure deep to the right mid soft tissue neck most likely deep to a surgical incision site. 2. This measures 3.0 x 3.0 x 1.5 cm and contains complex fluid and air. 3. Although given the short time frame from the patient's surgical procedure this statistically is postoperative/hematoma related, if additional information on a clinical basis indicates the possibility of abscess this is not excluded. 4. Significant bilateral cervical adenopathy. The above report was generated using voice recognition software. It may contain grammatical, syntax or spelling errors. Electronically signed by: Quinton Odonnell M.D. 09/23/2017 2:21 PM Dictated Date/Time: 09/23/2017 2:14 PM Laboratory Results 09/23/17 13:00 Red Blood Count 4.90, Mean Corpuscular Volume 88.6, Mean Corpuscular Hemoglobin 31.6, Mean Corpuscular Hemoglobin Concent 35.7, Mean Platelet Volume 8.6, Neutrophils (%) (Auto) 78.1, Lymphocytes (%) (Auto) 10.9, Monocytes (%) (Auto) 9.2, Eosinophils (%) (Auto) 0.8, Basophils (%) (Auto) 0.5, Neutrophils # (Auto) 5.00, Lymphocytes # (Auto) 0.70, Monocytes # (Auto) 0.59, Eosinophils # (Auto) 0.05, Basophils # (Auto) 0.03 09/23/17 13:00 Test 09/23/17 13:00 White Blood Count 6.40 K/uL (4.8-10.8) Red Blood Count 4.90 M/uL (4.7-6.1) Hemoglobin 15.5 g/dL (14.0-18.0) Hematocrit 43.4 % (42-52) Mean Corpuscular Volume 88.6 fL (80-100) Mean Corpuscular Hemoglobin 31.6 pg (25-34) Mean Corpuscular Hemoglobin Concent 35.7 g/dl (32-36) Platelet Count 199 K/uL (130-400) Mean Platelet Volume 8.6 fL (7.4-10.4) Neutrophils (%) (Auto) 78.1 % Lymphocytes (%) (Auto) 10.9 % Monocytes (%) (Auto) 9.2 % Eosinophils (%) (Auto) 0.8 % Basophils (%) (Auto) 0.5 % Neutrophils # (Auto) 5.00 K/uL (1.4-6.5) Lymphocytes # (Auto) 0.70 K/uL (1.2-3.4) Monocytes # (Auto) 0.59 K/uL (0.11-0.59) Eosinophils # (Auto) 0.05 K/uL (0-0.5) Basophils # (Auto) 0.03 K/uL (0-0.2) RDW Standard Deviation 43.6 fL (36.4-46.3) RDW Coefficient of Variation 13.3 % (11.5-14.5) Immature Granulocyte % (Auto) 0.5 % Immature Granulocyte # (Auto) 0.03 K/uL (0.00-0.02) Prothrombin Time 10.8 SECONDS (9.0-12.0) Prothromb Time International Ratio 1.0 (0.9-1.1) Activated Partial Thromboplast Time 25.7 SECONDS (21.0-31.0) Partial Thromboplastin Ratio 1.0 Anion Gap 5.0 mmol/L (3-11) Est Creatinine Clear Calc Drug Dose 95.3 ml/min Estimated GFR () 103.0 Estimated GFR (Non- 88.9 BUN/Creatinine Ratio 24.1 (10-20) Calcium Level 9.3 mg/dl (8.5-10.1) Laboratory results reviewed by me. Medications Administered Medications (Trade) Dose Ordered Sig/Ely Route Start Time Stop Time Status Last Admin Dose Admin Oxycodone HCl (Roxicodone Immediate Rel 5MG Home Pack) 1 homepack UD ONCE PO 09/23/17 15:15 09/23/17 15:16 DC 09/23/17 15:26 1 HOMEPACK ED Course 1217: The patient was evaluated in room C2. A complete history and physical exam was performed. 1443: Reevaluated the patient. Discussed results and discharge instructions: He verbalized understanding and agreement. The patient is ready for discharge. 1515: Ordered Oxycodone HCl 1 homepack PO. Medical Decision Differential diagnoses include hematoma, airway or esophageal compromise, carotid compromise, infection, anemia, coagulopathy. There is no leukocytosis or concerning anemia. No significant electrolyte abnormality or kidney failure. No coagulopathy. Chest x-ray does not show pneumonia, pneumothorax or mediastinal widening. Soft tissue neck CT shows a hematoma in the area where the cervical node was removed. No evidence for significant adjacent structure compromise. The patient was reassured by his testing. He is being discharged with ice to the area as directed by his surgeon. He will use Tylenol for pain. He will return for fever, worsening swelling or difficulty breathing/swallowing. Medication Reconcilliation Current Medication List: was personally reviewed by me Blood Pressure Screening Patient's blood pressure: Elevated blood pressure Blood pressure disposition: Referred to PCP Impression Primary Impression: Hematoma of neck Scribe Attestation The scribe's documentation has been prepared under my direction and personally reviewed by me in its entirety. I confirm that the note above accurately reflects all work, treatment, procedures, and medical decision making performed by me. Departure Information Dispostion Home / Self-Care Referrals No Doctor, Assigned (PCP) Forms HOME CARE DOCUMENTATION FORM, IMPORTANT VISIT INFORMATION, WORK / SCHOOL INSTRUCTIONS Patient Instructions My [facility] Additional Instructions continue with the ice as before use 1 gram of tylenol ( 2 extra strength tabs ) every 6 hours for pain use oxy ir 1 tab every 4 hours as needed for severe pain return for fever or trouble breathing
--- NOTE | 2017-09-23 14:23 | DIAGNOSTIC IMAGING REPORT ---
SOFT TISSUE NECK WITH CLINICAL HISTORY: poss hematoma with airway compromise--surgery 4 days ago r neck TECHNIQUE: Transaxial acquisition with multi axial reformatted images COMPARISON STUDY: None FINDINGS: Moderate bilateral cervical adenopathy. Subcutaneous air is noted lateral to the right platysmas muscle transaxial image 218. This is immediately anterior to a cervical node. Deep to this is a small partially air-containing collection measuring 1.5 cm at maximum. Maximum cephalocaudal dimension is approximately 3.0 cm. This may represent a small hematoma with postoperative air. I cannot entirely exclude the possibility of abscess although with that recent surgical procedure this is perhaps less likely unless clinically indicated otherwise. Major salivary glands are unremarkable. The parotid and submandibular glands are unremarkable. Findings of moderate cervical adenopathy primarily in the mid to lower cervical chains. This is seen along the posterior aspect of the upper cervical chains deep to the sternocleidomastoid musculature. Maximum linear dimension of a right posterior cervical node is 2 cm. Additional nodes throughout the cervical and submandibular regions are noted bilaterally with supraclavicular and retroclavicular nodes measuring up to 2.8 cm. The thyroid appears symmetric. There is no significant subglottic edema. There is closure of the vocal cords most likely secondary to patient phonating during the study. There is mild edematous change of the hypopharynx. There is moderate narrowing of the airway at that site. IMPRESSION: 1. Complex air and fluid containing somewhat linear structure deep to the right mid soft tissue neck most likely deep to a surgical incision site. 2. This measures 3.0 x 3.0 x 1.5 cm and contains complex fluid and air. 3. Although given the short time frame from the patient's surgical procedure this statistically is postoperative/hematoma related, if additional information on a clinical basis indicates the possibility of abscess this is not excluded. 4. Significant bilateral cervical adenopathy. The above report was generated using voice recognition software. It may contain grammatical, syntax or spelling errors. Electronically signed by: Quinton Odonnell M.D. 09/23/2017 2:21 PM Dictated Date/Time: 09/23/2017 2:14 PM
[2017-09-23] MEDS ORDERED: OXYCODONE IR HOME PACK PO ONE (15:15)
[2017-09-23 15:26] VITALS: BP 145/97; PULSE 91; TEMP 36.4; O2SAT 96
[2017-10-04] MEDS ORDERED: ACET-1311 PO (10:32)
[2017-10-22] MEDS ORDERED: DOXY1TAB6 PO (23:22)
[2017-10-26] MEDS ORDERED: GFNSR600 PO (14:25)
[2017-10-26] MEDS ORDERED: LVQ750 PO (14:25)
== END 2017-09-23 15:27 | disposition home or self-care (01) ==
LOC: C.EDB 12:07 → C.EDC 15:27
DX: L76.32 Postprocedural hematoma of skin and subcutaneous tissue following other procedure (principal); Z85.72 Personal history of non-Hodgkin lymphomas

== ENCOUNTER → 2017-10-05 | Day surgery (SDC) | payer SELFPAY ==
[~2017-10-05] VITALS: Ht 177.8 cm; Wt 95.5 kg
[~2017-10-05] MED LIST changes: +ACET-1311 PO; +ATROPINE SULFATE 0.1 MG/ML 5ML SYR IV PRN; +BUPIVACAINE 0.5 % 5 MG/1 ML MPF 30ML VIAL ONE; +CEFAZOLIN 2000MG IV PUSH 10 ML IV SCH; +CEFAZOLIN SOD 2000MG/10 ML IV PUSH IV ONE; +EpHEDrine SULFATE INJ 50 MG/ML AMP IV PRN; +FENTANYL CITRATE INJ 50 MCG/1 ML 2 ML VIAL ONE; -IBUP-1459 PO; +IBUPROFEN 600 MG TAB PO PRN; +LACTATED RINGER'S 1000ML 1,000 ML IV SCH; +LIDOCAINE HCL 1% 20 ML VIAL ONE; +LIDOCAINE HCL 2% 2 ML VIAL (20MG/ML) ONE; +MIDAZOLAM HCL 1 MG/ML 2ML VIAL ONE; +ONDANSETRON INJ 2 MG/ML 2 ML VIAL IV PRN; +OXYCODONE/ACETAMINOPHEN 5-325 TAB ONE; +OXYCODONE/ACETAMINOPHEN 5-325 TAB PO PRN; +PATIENT'S HEIGHT AND/OR WEIGHT NEEDED SCH; +PROPOFOL IV EMULSION 10 MG/ML 20 ML VIAL IV ONE; +SODIUM CHLORIDE 0.9% 1000ML 1,000 ML IV SCH; -ULT50X PO
[2017-10-05 08:24] VITALS: BP 165/85; PULSE 74; TEMP 36.5; O2SAT 94; Ht 177.8 cm; Wt 95.5 kg
--- NOTE | 2017-10-05 10:02 | History & Physical Bridge Note ---
H&P Re-Evaluation Bridge Note: I have examined the patient, reviewed the History & Physical and in the interval since the performance of the History & Physical I have noted the following changes of clinical significance: No changes noted
--- NOTE | 2017-10-05 11:20 | [facility] Post Operative Brief Note ---
Immediate Operative Summary Operative Date Oct 05, 2017. Pre-Operative Diagnosis Lymphoma Post-Operative Diagnosis Lymphoma Procedure(s) Performed A-port Insertion, Left Intrrnal jugular Vein Surgeon Dr. Good Form Builder Helper Surgeon(s) Nasima Menjivar PA-C Estimated Blood Loss 10 cc Findings patent left internal jugular vein Fluids (cc crystalloids) 600ml Specimens none per surgeon Drains none Anesthesia sedation + local Complication(s) None Disposition Recovery Room / PACU
--- NOTE | 2017-10-05 11:25 | Discharge Instructions ---
Discharge Instructions Date of Service Oct 05, 2017. Visit Reason for Visit: Lymphoma Of Lymph Nodes Discharge Discharge Diagnosis / Problem: S/P port-A catheter insertion Discharge Goals Goal(s): Decrease discomfort, Improve function Activity Recommendations Activity Limitations: per Instructions/Follow-up section Lifting Limitations: none Exercise/Sports Limitations: rest today May Resume Sexual Activity: when tolerated Shower/Bathe: may shower/bathe in 3 days Driving or Machine Use: resume 3 days after discharge Anesthesia . Post Anesthesia Instructions: If you have had General Anesthesia or IV Sedation: * Do not drive today. * Resume driving when surgeon permits. * Do not make important decisions or sign legal documents today. * Call surgeon for: 1. Temperature elevations greater than 101 degrees F. 2. Uncontrollable pain. 3. Excessive bleeding. 4. Persistent nausea and vomiting. 5. Medication intolerance (nausea, vomiting or rash). * For nausea and vomiting use only clear liquids such as: tea, soda, bouillon until nausea subsides, then gradually increase diet as tolerated. * If you have any concerns or questions, call your surgeon's office. If physician is unavailable and it is an emergency, call 911 or go to the nearest emergency room. . Instructions / Follow-Up Instructions / Follow-Up Keep the dressing n for 4 days, he can take a shower on 10/09/2017, Follow up Dr. Good 1 week, Diet Recommendations Recommended Home Diet: resume previous diet Procedures Procedures Performed: A-port Insertion, Left Intrrnal jugular Vein Pending Studies Studies pending at discharge: no Medical Emergencies . Who to Call and When: Medical Emergencies: If at any time you feel your situation is an emergency, please call 911 immediately. . Non-Emergent Contact Non-Emergency issues call your: Surgeon . . "Provider Documentation" section prepared by Madai Good. . [place] Drug Monitoring Program Search Results: no issues identified
--- NOTE | 2017-10-05 11:55 | DIAGNOSTIC IMAGING REPORT ---
CHEST ONE VIEW PORTABLE CLINICAL HISTORY: Chest x-ray status post central line placement LYMPHOMA COMPARISON STUDY: 09/23/2017 FINDINGS: The cardiac and mediastinal contours remain stable. There is been interval placement of a left internal jugular A-Port catheter. The tip projects over the superior vena cava near the expected innominate vein confluence. There is no pneumothorax. There is no focal pulmonary consolidation. There is minor basilar atelectasis.[ IMPRESSION: No evidence of pneumothorax status post placement of a left-sided internal jugular A-Port catheter Electronically signed by: Renny Boggs M.D. 10/05/2017 11:53 AM Dictated Date/Time: 10/05/2017 11:53 AM
--- NOTE | 2017-10-05 11:59 | Anesthesiology Progress Note ---
Anesthesia Post Op Note Date & Time Oct 05, 2017 at 11:59 Vital Signs Pain Intensity: 6.0 Vital Signs Past 12 Hours Date Time Temp Pulse Resp B/P (MAP) Pulse Ox O2 Delivery O2 Flow Rate FiO2 10/05/17 11:31 36.2 75 16 120/79 95 Room Air 10/05/17 08:24 36.5 74 18 165/85 (111) 94 Room Air Notes Mental Status: alert / awake / arousable, participated in evaluation Pt Amnestic to Procedure: Yes Nausea / Vomiting: adequately controlled Pain: adequately controlled Airway Patency, RR, SpO2: stable & adequate BP & HR: stable & adequate Hydration State: stable & adequate Anesthetic Complications: no major complications apparent
--- NOTE | 2017-10-05 12:01 | OPERATIVE REPORT ---
DATE OF OPERATION: 10/05/2017 PREOPERATIVE DIAGNOSIS: Lymphoma. POSTOPERATIVE DIAGNOSIS: Same. PROCEDURE: [id number] insertion on the left internal jugular vein. SURGEON: Dr. Madai Good. EMPLOYEE RELATIONS REPRESENTATIVE: Olivia Menjivar PA-C. ANESTHESIA: Conscious sedation plus local. ESTIMATED BLOOD LOSS: About 10 mL. FINDINGS: Patent left internal jugular vein. COMPLICATIONS: None. INDICATIONS FOR THE PROCEDURE: This is a 67-year-old gentleman who had newly diagnosed diagnosis lymphoma need a [id number] insertion. I did talk to the patient about the benefit and risk, alternate procedure. I indicated the risks may include but not limited such as bleeding, infection, injury lung, dysfunction catheter, blood clot. The patient understands. He signed informed consent and I answered all questions. OPERATION AND FINDINGS: DETAILS OF PROCEDURE: We brought the patient to the OR, put the patient in Trendelenburg position. The patient received SCD on bilateral legs to prevent DVT. Also, patient received 2 grams Ancef IV for prophylactic antibiotic. The patient received conscious sedation by the anesthesiology. The left side of the neck and upper chest was prepped and draped in routine sterile fashion. After time out, I injected the local anesthesia by using 1% lidocaine mixed with 0.5% Marcaine on the left side of the neck and left side upper chest, then I made a 0.5 incision on the left side of the neck, used the ultrasound to locate the left internal jugular vein, used a 15-gauge needle to puncture the left internal jugular vein without difficulty easily blood returned and passed the wire in and used fluoro guidance conform the catheter go to superior vena cava. Then I made about a 3 cm incision on the left side upper chest to create the pouch for the port. Hemostasis obtained and then we passed the catheter through to the incision and put the sheath of the catheter through the wire and removed the wire. Then we passed the catheter through the sheath. Then we removed the sheath. Then I used 2-0 Prolene affix the port 3 points on the chest wall. Then we used fluoro to conform the catheter located superior vena cava. Then I closed the incision subcutaneous layer by using 2-0 Vicryl, closed the skin by using 4-0 Vicryl. Then we put the dressing on. I then used the straight needle to puncture the port easily blood returned and injection the normal saline plus the heparin 10 mL. The patient tolerated the procedure well. All the instrument, needle and sponge count correct x2 at the end of case. The patient transferred to recovery room in stable condition. I attest to the content of the Intraoperative Record and any orders documented therein. Any exceptions are noted below. MTDD
[2017-10-05 12:08] VITALS: BP 131/85; PULSE 65; TEMP 36.6; O2SAT 95
[2017-10-05 12:42] VITALS: BP 122/79; PULSE 68; O2SAT 94
== END | disposition home or self-care (01) ==
LOC: C.ACU 07:55
PROVIDERS: ATTEND Surgery
DX: C82.18 Follicular lymphoma grade II, lymph nodes of multiple sites (principal); M51.36 Other intervertebral disc degeneration, lumbar region; Z82.49 Family history of ischemic heart disease and other diseases of the circulatory system; Z83.3 Family history of diabetes mellitus; Z79.899 Other long term (current) drug therapy

== ENCOUNTER 2017-10-23 22:23 | Inpatient (IN) | payer OTHER ==
[~2017-10-23] VITALS: Ht 177.8 cm; Wt 93.0 kg
[~2017-10-23 22:23] MED LIST changes: -ATROPINE SULFATE 0.1 MG/ML 5ML SYR IV PRN; -BUPIVACAINE 0.5 % 5 MG/1 ML MPF 30ML VIAL ONE; -CEFAZOLIN 2000MG IV PUSH 10 ML IV SCH; -CEFAZOLIN SOD 2000MG/10 ML IV PUSH IV ONE; +DOXY1TAB6 PO; -EpHEDrine SULFATE INJ 50 MG/ML AMP IV PRN; -FENTANYL CITRATE INJ 50 MCG/1 ML 2 ML VIAL ONE; -IBUPROFEN 600 MG TAB PO PRN; -LACTATED RINGER'S 1000ML 1,000 ML IV SCH; -LIDOCAINE HCL 1% 20 ML VIAL ONE; -LIDOCAINE HCL 2% 2 ML VIAL (20MG/ML) ONE; -MIDAZOLAM HCL 1 MG/ML 2ML VIAL ONE; -ONDANSETRON INJ 2 MG/ML 2 ML VIAL IV PRN; -OXYCODONE/ACETAMINOPHEN 5-325 TAB ONE; -OXYCODONE/ACETAMINOPHEN 5-325 TAB PO PRN; -PATIENT'S HEIGHT AND/OR WEIGHT NEEDED SCH; -PROPOFOL IV EMULSION 10 MG/ML 20 ML VIAL IV ONE; -SODIUM CHLORIDE 0.9% 1000ML 1,000 ML IV SCH
[2017-10-23] MEDS ORDERED: SODIUM CHLORIDE 0.9% 1000ML 1,000 ML IV STA ×2 (22:50→23:26)
[2017-10-23] MEDS ORDERED: CLR10 PO (23:22)
[2017-10-23] MEDS ORDERED: ALLO300T2 PO (23:22)
[2017-10-23] MEDS ORDERED: LEVAQUIN 750MG / 150ML D5W IV STA (23:26)
[2017-10-23] MEDS ORDERED: ACETAMINOPHEN 500 MG TAB PO STA (23:26)
[2017-10-23] MEDS ORDERED: ALBUT/IPRATROP 3MG/0.5MG NEB 3 ML VIAL INH STA (23:28)
[2017-10-23 23:31] LABS: HEMATOCRIT 40.9 % (42-52); HEMOGLOBIN 14.5 g/dL (14.0-18.0); MEAN CELL VOLUME 87.6 fL (80-100); MEAN CORPUSCULAR HGB CONC 35.5 g/dl (32-36); MEAN PLATELET VOLUME 9.7 fL (7.4-10.4); PLATELET COUNT 126 K/uL (130-400); RED CELL DISTRIBUTION WIDTH CV 13.2 % (11.5-14.5); RED CELL DISTRIBUTION WIDTH SD 41.9 fL (36.4-46.3); WHITE BLOOD COUNT 5.82 K/uL (4.8-10.8)
[2017-10-23 23:41] LABS: INR 1.1 (0.9-1.1); PTT PATIENT 26.3 SECONDS (21.0-31.0)
[2017-10-23 23:48] LABS: ALBUMIN 3.6 gm/dl (3.4-5.0); ALT/SGPT 29 U/L (12-78); AST/SGOT 17 U/L (15-37); BLOOD UREA NITROGEN 24 mg/dl (7-18); CALCIUM 8.7 mg/dl (8.5-10.1); CARBON DIOXIDE 24 mmol/L (21-32); CREATININE 0.95 mg/dl (0.60-1.40); GLUCOSE 118 mg/dl (70-99); LIPASE 70 U/L (73-393); POTASSIUM 3.6 mmol/L (3.5-5.1); SODIUM 135 mmol/L (136-145)
[2017-10-23 23:52] LABS: BASO % 0.5 %; BASO ABS # 0.03 K/uL (0-0.2); EOS ABS # 0.06 K/uL (0-0.5); IG# 0.08 K/uL (0.00-0.02); LYMPH % 5.8 %; LYMPH ABS # 0.34 K/uL (1.2-3.4); MONO % 8.2 %; MONO ABS # 0.48 K/uL (0.11-0.59); NEUT % 83.1 %; NEUT ABS # 4.83 K/uL (1.4-6.5)
[2017-10-23] MEDS ORDERED: HYDROCODONE/HOMATROPINE SYRUP 5MG/1.5MG 5ML UDP PO STA (23:55)
[2017-10-23 23:59] LABS: ALKALINE PHOSPHATASE 131 U/L (45-117)
[2017-10-24] VITALS (7 sets, daily range): BP systolic 109–135; BP diastolic 71–84; PULSE 76–104; TEMP 36.3–36.9; O2SAT 93–97; Ht 177.8 cm; Wt 93.0 kg
[2017-10-24 00:03] LABS: INFLUENZA B ANTIGEN Neg for Influ B (NEG)
[2017-10-24] MEDS ORDERED: POTASSIUM CHLORIDE 10 MEQ TABCR PO STA (00:30)
[2017-10-24] MEDS ORDERED: POTASSIUM CHLORIDE 10 MEQ TABCR ONE (00:40)
[2017-10-24] MEDS ORDERED: GUAIFENESIN 600 MG TABCR PO ONE (01:09)
[2017-10-24] MEDS ORDERED: TRAMADOL HCL 50 MG TAB PO PRN (01:15)
[2017-10-24] MEDS ORDERED: LEVALBUTEROL/IPRATROPIUM NEB INH PRN (01:15)
[2017-10-24] MEDS ORDERED: NSS + 20MEQ KCL 1000ML 1,000 ML IV ONE (01:15)
[2017-10-24] MEDS ORDERED: ACETAMINOPHEN 325 MG TAB PO PRN (01:15)
--- NOTE | 2017-10-24 01:25 | EMERGENCY ROOM VISIT NOTE ---
History Report prepared by Jeffrey: Leta Conway Under the Supervision of: Dr. Tobias Ferrari M.D. First contact with patient: 22:50 Chief Complaint: FEVER Stated Complaint: HIGH TEMP, ON CHEMO, BRONCHITIS History of Present Illness The patient is a 67 year old male who presents to the Emergency Room with complaints of a worsening fever starting this evening. The patient states that he has Lymphoma cancer and is on chemotherapy. He states that he was recently diagnosed with Bronchitis and was placed on Doxycycline. He states that his temperature was 100 before coming in. The patient complains of a cough, nausea, loss of appetite, voice hoarseness, inability to sleep, and body aches. He states that he is unsure if his voice hoarseness is from chemotherapy or being sick. He states that he has chest and abdominal pain when he coughs. He notes that he has not been able to sleep for 3 nights. The patient states that he took Tylenol this morning with little relief. Pt denies LOC, headache, chills, diaphoresis, visual changes, neck pain, breathing difficulties, vomiting, back pain, melena, hematochezia, urinary symptoms, numbness, weakness, lymphadenopathy, rash, or other complaints. Source of History: patient Onset: this evening Position: other (global) Quality: ache Timing: worsening Associated Symptoms: + fevers, + cough, + chest pain, + nausea, + abdominal pain Note: The patient complains of loss of appetite, voice hoarseness, and inability to sleep. Review of Systems See HPI for pertinent positives and negatives. A total of ten systems were reviewed and were otherwise negative. Past Medical & Surgical Medical Problems: (1) Hx of fracture of rib (2) Lymphoma (3) Sepsis Family History No pertinent family history Social History Smoking Status: Never Smoker Alcohol Use: occasionally Marital Status: Housing Status: lives with family Occupation Status: retired Current/Historical Medications Scheduled Allopurinol (Zyloprim), 300 MG PO DAILY Doxycycline Hyclate (Doxycycline Hyclate), 1 TAB PO BID Loratadine (Claritin), 10 MG PO DAILY Scheduled PRN Acetaminophen (Tylenol), 650 MG PO QID PRN for Pain or Fever Allergies Coded Allergies: No Known Allergies (Unverified , 10/23/17) Physical Exam Vital Signs Date Time Temp Pulse Resp B/P (MAP) Pulse Ox O2 Delivery O2 Flow Rate FiO2 1/31/18 00:49 36.9 105 20 113/75 95 10/23/17 23:47 109 20 118/76 94 Room Air 10/23/17 23:33 115 10/23/17 22:35 37.8 135 18 117/76 92 Room Air Physical Exam GENERAL: Awake, alert, ill-appearing, in no distress HENT: Normocephalic, atraumatic. Oropharynx unremarkable. EYES: Normal conjunctiva. Sclera non-icteric. NECK: Supple. No nuchal rigidity. FROM. No JVD. RESPIRATORY: Rhonchi on right side. CARDIAC: Tachycardic rate, normal rhythm. Extremities warm and well perfused. Pulses equal. ABDOMEN: Soft, non-distended. No tenderness to palpation. No rebound or guarding. No masses. RECTAL: Deferred. MUSCULOSKELETAL: Mediport in left upper chest. Chest examination reveals no tenderness. The back is symmetrical on inspection without obvious abnormality. There is no CVA tenderness to palpation. No joint edema. LOWER EXTREMITIES: Calves are equal size bilaterally and non-tender. No edema. No discoloration. NEURO: Normal sensorium. No sensory or motor deficits noted. SKIN: No rash or jaundice noted. Medical Decision & Procedures ER Provider Diagnostic Interpretation: Chest X-Ray: The results were interpreted by me. Consolidation in the right base. No pneumothorax or effusion. Laboratory Results 10/23/17 23:05 Red Blood Count 4.67, Mean Corpuscular Volume 87.6, Mean Corpuscular Hemoglobin 31.0, Mean Corpuscular Hemoglobin Concent 35.5, Mean Platelet Volume 9.7, Neutrophils (%) (Auto) 83.1, Lymphocytes (%) (Auto) 5.8, Monocytes (%) (Auto) 8.2, Eosinophils (%) (Auto) 1.0, Basophils (%) (Auto) 0.5, Neutrophils # (Auto) 4.83, Lymphocytes # (Auto) 0.34, Monocytes # (Auto) 0.48, Eosinophils # (Auto) 0.06, Basophils # (Auto) 0.03 10/23/17 23:05 Test 10/23/17 23:05 10/23/17 23:18 10/24/17 00:57 10/24/17 01:09 White Blood Count 5.82 K/uL (4.8-10.8) Red Blood Count 4.67 M/uL (4.7-6.1) Hemoglobin 14.5 g/dL (14.0-18.0) Hematocrit 40.9 % (42-52) Mean Corpuscular Volume 87.6 fL (80-100) Mean Corpuscular Hemoglobin 31.0 pg (25-34) Mean Corpuscular Hemoglobin Concent 35.5 g/dl (32-36) Platelet Count 126 K/uL (130-400) Mean Platelet Volume 9.7 fL (7.4-10.4) Neutrophils (%) (Auto) 83.1 % Lymphocytes (%) (Auto) 5.8 % Monocytes (%) (Auto) 8.2 % Eosinophils (%) (Auto) 1.0 % Basophils (%) (Auto) 0.5 % Neutrophils # (Auto) 4.83 K/uL (1.4-6.5) Lymphocytes # (Auto) 0.34 K/uL (1.2-3.4) Monocytes # (Auto) 0.48 K/uL (0.11-0.59) Eosinophils # (Auto) 0.06 K/uL (0-0.5) Basophils # (Auto) 0.03 K/uL (0-0.2) RDW Standard Deviation 41.9 fL (36.4-46.3) RDW Coefficient of Variation 13.2 % (11.5-14.5) Immature Granulocyte % (Auto) 1.4 % Immature Granulocyte # (Auto) 0.08 K/uL (0.00-0.02) Toxic Granulation 1+ Toxic Vacuolation 1+ Dohle Bodies 2+ Prothrombin Time 11.5 SECONDS (9.0-12.0) Prothromb Time International Ratio 1.1 (0.9-1.1) Activated Partial Thromboplast Time 26.3 SECONDS (21.0-31.0) Partial Thromboplastin Ratio 1.0 Anion Gap 10.0 mmol/L (3-11) Est Creatinine Clear Calc Drug Dose 87.0 ml/min Estimated GFR () 95.6 Estimated GFR (Non- 82.5 BUN/Creatinine Ratio 25.0 (10-20) Calcium Level 8.7 mg/dl (8.5-10.1) Magnesium Level 2.0 mg/dl (1.8-2.4) Total Bilirubin 0.8 mg/dl (0.2-1) Direct Bilirubin 0.2 mg/dl (0-0.2) Aspartate Amino Transf (AST/SGOT) 17 U/L (15-37) Alanine Aminotransferase (ALT/SGPT) 29 U/L (12-78) Alkaline Phosphatase 131 U/L (45-117) Troponin I < 0.015 ng/ml (0-0.045) Total Protein 7.0 gm/dl (6.4-8.2) Albumin 3.6 gm/dl (3.4-5.0) Lipase 70 U/L (73-393) Thyroid Stimulating Hormone (TSH) 0.434 uIu/ml (0.300-4.500) Influenza Type A Antigen Neg for Influ A (NEG) Influenza Type B Antigen Neg for Influ B (NEG) Laboratory results reviewed by me Medications Administered Medications (Trade) Dose Ordered Sig/Ely Route Start Time Stop Time Status Last Admin Dose Admin Sodium Chloride 1,000 ml @ 125 mls/hr Q8H STAT IV 10/23/17 22:50 10/24/17 06:49 10/23/17 23:16 125 MLS/HR Sodium Chloride 1,000 ml @ 999 mls/hr Q1H1M STAT IV 10/23/17 23:26 10/24/17 00:26 DC 10/23/17 23:41 999 MLS/HR Levofloxacin (Levaquin / D5W) 750 mg NOW STAT IV 10/23/17 23:26 10/23/17 23:28 DC 10/23/17 23:40 750 MG Acetaminophen (Tylenol Tab) 1,000 mg NOW STAT PO 10/23/17 23:26 10/23/17 23:28 DC 10/23/17 23:41 1,000 MG Albuterol/ Ipratropium (Duoneb) 3 ml NOW STAT INH 10/23/17 23:28 10/23/17 23:29 DC 10/23/17 23:40 3 ML Hydrocodone Bit/ Homatropine Methylb (Hycodan Syrup) 5 ml NOW STAT PO 10/23/17 23:55 10/23/17 23:56 DC 10/24/17 00:12 5 ML Potassium Chloride (Klor-Con M10) 40 meq STK-MED ONCE .ROUTE 10/24/17 00:40 10/24/17 00:41 DC 10/24/17 00:44 40 MEQ ECG Indication: chest pain Rate (beats per minute): 112 Rhythm: sinus tachycardia Findings: PVC, no acute ischemic change Change: Patient's electrocardiogram was interpreted by me. ED Course 225: Ordered NSS 100 ml @ 125 mls/hr IV 2323: The patient was evaluated in room C11B. A complete history and physical exam was performed. . 2326: Ordered Tylenol Tab 1000 mg PO, Levofloxacin 750 mg IV, NSS 1000 ml @ 999 mls/hr IV. 2328: Ordered Duoneb 3 ml INH. 2355: Ordered Hycodan Syrup 5 ml PO. 0016: I reevaluated the patient and he is feeling okay. 0018: Discussed the patient's case with Dr. Nadine Salas. The patient will be evaluated for further treatment and disposition. Medical Decision Triage Nursing notes reviewed. The patient's presentation and history were concerning for fever and recent pneumonia dx. Etiologies such as pneumonia, COPD, reactive airway disease, CHF, cardiac ischemia, pulmonary embolism, pneumothorax, musculoskeletal, infections, gastrointestinal, as well as others were entertained. The patient was evaluated. He had flulike symptoms. His history was concerning for chemotherapy and recent diagnosis of pneumonia. He was getting worse despite outpatient antibiotic treatment. Chest x-ray was performed and shows abnormalities in the right lower lobe. Clinically he has this on physical examination as well. His CBC did not reveal any evidence of neutropenia. His remainder of blood work looked good. His flu testing was negative. His ECG was unremarkable. The patient was treated with saline hydration. He was given Tylenol, Levaquin, and Hycodan. The patient was also given a DuoNeb. He is still outpatient management of his pneumonia and he is on chemotherapy. Consultation was made with internal medicine. The patient was evaluated in the Emergency Room for further treatment. Medication Reconcilliation Current Medication List: was personally reviewed by me Blood Pressure Screening Patient's blood pressure: Normal blood pressure Blood pressure disposition: Did not require urgent referral Consults Time Called: 14 Consulting Physician: Dr. Nadine Salas Returned Call: 17 Discussed the patient's case with Dr. Oconer- [facility]. The patient will be evaluated for further treatment and disposition. Impression Primary Impression: Pneumonia Additional Impression: Failure of outpatient treatment Scribe Attestation The scribe's documentation has been prepared under my direction and personally reviewed by me in its entirety. I confirm that the note above accurately reflects all work, treatment, procedures, and medical decision making performed by me. Departure Information Dispostion Being Evaluated By Hospitalist Referrals Babs KAPADIA M.D. (PCP) Patient Instructions My [facility] Problem Qualifiers
--- NOTE | 2017-10-24 02:38 | HISTORY & PHYSICAL EXAMINATION ---
DATE OF ADMISSION: 10/24/2017 PRIMARY CARE DOCTOR: Dr. Babs Lee. CHIEF COMPLAINT: Fever, chills, weakness. HISTORY OF PRESENT ILLNESS: History obtained from patient and records. Medical history significant for mood disorder (currently not on meds), recent diagnosis of non-Hodgkin's lymphoma ongoing chemotherapy. Recent confinement July 2017 for fall, multiple rib fractures. Patient had an incidental finding of mediastinal lymphadenopathy on imaging. Pathology showed non-Hodgkin's lymphoma. A-port placed 2 weeks ago. Chemotherapy subsequently, initiated. Last few days noted sinus congestion, cough, runny nose, urinary frequency, voice change. Denies aspiration. Fever, chills noted. Outpatient UA showed mixed natalia. A chest x-ray showed old right rib fracture, perihilar basilar opacity, atelectasis versus infiltrate. Patient started on doxycycline. Symptoms unimproved. Patient received Levaquin at the ER for pneumonia. MEDICAL HISTORY: As above. Pneumococcal vaccine in July 2017, seasonal flu vaccine July 2017. SURGERIES: He has had A-port placement, hernia surgery. HOME MEDICATIONS: Include doxycycline, Zofran, Ativan, Zyloprim and Tramadol. ALLERGIES: No known drug allergies. FAMILY HISTORY: Diabetes. PERSONAL AND SOCIAL HISTORY: Nonsmoker, no chronic intake of alcoholic beverages. Retired from hotel work. REVIEW OF SYSTEMS: As per HPI, all 10 systems reviewed. All other ROS negative. PHYSICAL EXAMINATION: VITAL SIGNS: Blood pressure 117/76, pulse rate 135, later 105, RR 18, temperature 37.8, sats 90 on room air. GENERAL: Noted to be pleasant, no respiratory distress, dysphonic. SKIN: Warm, normal color. HEENT: [place] palpebral conjuctivae. No ptosis. Dry mucosa. NECK: Supple, nontender. CHEST: Decreased effort noted. No tenderness HEART: Tachycardic. No murmur. ABDOMEN: Soft, nontender. EXTREMITIES: No edema. No tenderness. No gross deformity. NEUROLOGIC: Coherent. No gross focality. LABORATORY DATA: Hemoglobin 14.5, hematocrit 40, white cell count 5.8. Lipase noted to be 126. Sodium 135, potassium 3.6, chloride 101, CO2 24, BUN 20, creatinine 0.9, glucose 118. Chest x-ray as per my interpretation atelectasis, possible infiltrate left. Initial flu swab was negative. ASSESSMENT: 1. Sepsis secondary to HCAP immunocompromised patient hx NHL ongoing chemotherapy failed outpatient treatment rule out atypical/viral pneumonia given significant constitutional symptoms 2. Thrombocytopenia, secondary to sepsis, chemo rule out HIT. PLAN: GMF CS, Levaquin Flu PCR IV fluids. HIT screen. DVT prophylaxis SCDs RE thrombocytopenia. Full code. MTDD
[2017-10-24 03:29] LABS: INFLUENZA A PCR Neg for Influ A (NEG); INFLUENZA B PCR Neg for Influ B (NEG)
[2017-10-24] MEDS ORDERED: LEVALBUTEROL 1.25MG/0.5ML NEB INH PRN (06:30)
[2017-10-24] MEDS ORDERED: IPRATROPIUM BROMIDE NEB SOLN 0.02% 2.5 ML VIAL INH PRN (06:30)
--- NOTE | 2017-10-24 06:37 | DIAGNOSTIC IMAGING REPORT ---
CHEST ONE VIEW PORTABLE CLINICAL HISTORY: EVALUATE WEAKNESS COMPARISON STUDY: Chest CT August 07, 2017 and chest radiograph October 05, 2007 FINDINGS: A left internal jugular [id number] is in place. There is no pneumothorax or pleural effusion. There is no evidence for pulmonary edema. Cardiomediastinal silhouette is stable. Linear bibasilar opacities favor atelectasis. There are old right-sided rib fractures. IMPRESSION: 1. No acute cardiopulmonary findings. 2. Diminished lung volumes with bibasilar opacities suggestive of atelectasis. Electronically signed by: Marino Voss M.D. 10/24/2017 6:36 AM Dictated Date/Time: 10/24/2017 6:34 AM
[2017-10-24] MEDS ORDERED: LEVOFLOXACIN CONSULT ACTIVE PRN (08:00)
[2017-10-24] MEDS: ALLOPURINOL 300 MG TAB PO SCH (08:47)
[2017-10-24] MEDS: LORATADINE 10 MG TAB PO SCH (08:47)
[2017-10-24 08:50] LABS: HEMATOCRIT 37.9 % (42-52); HEMOGLOBIN 13.2 g/dL (14.0-18.0); MEAN CELL VOLUME 88.6 fL (80-100); MEAN CORPUSCULAR HEMOGLOBIN 30.8 pg (25-34); MEAN CORPUSCULAR HGB CONC 34.8 g/dl (32-36); MEAN PLATELET VOLUME 9.5 fL (7.4-10.4); PLATELET COUNT 122 K/uL (130-400); RED CELL DISTRIBUTION WIDTH CV 13.2 % (11.5-14.5); RED CELL DISTRIBUTION WIDTH SD 42.5 fL (36.4-46.3); WHITE BLOOD COUNT 5.32 K/uL (4.8-10.8)
[2017-10-24 09:10] LABS: CALCIUM 8.5 mg/dl (8.5-10.1); CREATININE 0.66 mg/dl (0.60-1.40); POTASSIUM 3.8 mmol/L (3.5-5.1)
[2017-10-24 09:12] LABS: BASO % 0.2 %; BASO ABS # 0.01 K/uL (0-0.2); EOS % 2.8 %; EOS ABS # 0.15 K/uL (0-0.5); IG# 0.09 K/uL (0.00-0.02); LYMPH % 8.6 %; LYMPH ABS # 0.46 K/uL (1.2-3.4); MONO % 9.8 %; MONO ABS # 0.52 K/uL (0.11-0.59); NEUT % 76.9 %; NEUT ABS # 4.09 K/uL (1.4-6.5)
[2017-10-24] MEDS: LEVOFLOXACIN 750 MG TAB PO SCH (12:23)
--- NOTE | 2017-10-24 13:00 | Progress Note ---
Internal Med Progress Note Date of Service: Oct 24, 2017. Provider Documentation: SUBJECTIVE: Seen and examined at bedside Reports generalized weakness Also has cough and muscular pain from coughing Denies any SOB, chest pain No other complaints OBJECTIVE: Vital Signs-as noted below Physical Exam: General Appearance:Moderately built and nourished, no apparent distress Head: normocephalic, Atraumatic Eyes: normal inspection, EOMI, PERRL Neck: supple, Trachea midline Respiratory/Chest: Normal breath sounds, CTA Cardiovascular: S1, S2, No murmur Abdomen/GI:Soft, Non tender, Bowel sounds present Extremities/Musculoskelatal:normal inspection, no edema Neurologic/Psych:AAOX3, grossly no focal neurological deficits Skin: normal color, warm Lab data as noted below. ASSESSMENT & PLAN: Sepsis: Atypical Pneumonia/Bronchitis/Laryngitis Immunocompromised patient Influenza negative Failed outpatient Doxycycline CXR:. No acute cardiopulmonary findings Continue Levaquin Normal Lactate levels IV fluids Nebs, Oxygen PRN H/O NHL: Ongoing chemotherapy Follows with Next chemotherapy due on 11/06/17 Thrombocytopenia: Likely secondary to Chemotherapy HIT screen: Negative Monitor DVT px: SCDs RE thrombocytopenia Code Status: Full code Disposition: Expect to discharge home when stable Vital Signs: Date Time Temp Pulse Resp B/P (MAP) Pulse Ox O2 Delivery O2 Flow Rate FiO2 10/24/17 12:32 Room Air 10/24/17 11:44 36.7 76 20 134/82 (99) 97 10/24/17 08:26 36.4 76 18 118/83 (95) 95 Room Air 10/24/17 01:10 36.5 104 22 123/74 95 Room Air 10/24/17 01:10 36.5 104 22 123/74 (90) 95 Room Air 10/24/17 00:49 36.9 105 20 113/75 95 10/23/17 23:47 109 20 118/76 94 Room Air 10/23/17 23:33 115 10/23/17 22:35 37.8 135 18 117/76 92 Room Air Lab Results: Results Past 24 Hours Test 10/23/17 23:05 10/23/17 23:15 10/23/17 23:18 10/24/17 00:57 Range/Units White Blood Count 5.82 4.8-10.8 K/uL Red Blood Count 4.67 4.7-6.1 M/uL Hemoglobin 14.5 14.0-18.0 g/dL Hematocrit 40.9 42-52 % Mean Corpuscular Volume 87.6 80-100 fL Mean Corpuscular Hemoglobin 31.0 25-34 pg Mean Corpuscular Hemoglobin Concent 35.5 32-36 g/dl Platelet Count 126 130-400 K/uL Mean Platelet Volume 9.7 7.4-10.4 fL Neutrophils (%) (Auto) 83.1 % Lymphocytes (%) (Auto) 5.8 % Monocytes (%) (Auto) 8.2 % Eosinophils (%) (Auto) 1.0 % Basophils (%) (Auto) 0.5 % Neutrophils # (Auto) 4.83 1.4-6.5 K/uL Lymphocytes # (Auto) 0.34 1.2-3.4 K/uL Monocytes # (Auto) 0.48 0.11-0.59 K/uL Eosinophils # (Auto) 0.06 0-0.5 K/uL Basophils # (Auto) 0.03 0-0.2 K/uL RDW Standard Deviation 41.9 36.4-46.3 fL RDW Coefficient of Variation 13.2 11.5-14.5 % Immature Granulocyte % (Auto) 1.4 % Immature Granulocyte # (Auto) 0.08 0.00-0.02 K/uL Toxic Granulation 1+ Toxic Vacuolation 1+ Dohle Bodies 2+ Prothrombin Time 11.5 9.0-12.0 SECONDS Prothromb Time International Ratio 1.1 0.9-1.1 Activated Partial Thromboplast Time 26.3 21.0-31.0 SECONDS Partial Thromboplastin Ratio 1.0 Sodium Level 135 136-145 mmol/L Potassium Level 3.6 3.5-5.1 mmol/L Chloride Level 101 98-107 mmol/L Carbon Dioxide Level 24 21-32 mmol/L Anion Gap 10.0 3-11 mmol/L Blood Urea Nitrogen 24 7-18 mg/dl Creatinine 0.95 0.60-1.40 mg/dl Est Creatinine Clear Calc Drug Dose 87.0 ml/min Estimated GFR () 95.6 Estimated GFR (Non- 82.5 BUN/Creatinine Ratio 25.0 10-20 Random Glucose 118 70-99 mg/dl Calcium Level 8.7 8.5-10.1 mg/dl Magnesium Level 2.0 1.8-2.4 mg/dl Total Bilirubin 0.8 0.2-1 mg/dl Direct Bilirubin 0.2 0-0.2 mg/dl Aspartate Amino Transf (AST/SGOT) 17 15-37 U/L Alanine Aminotransferase (ALT/SGPT) 29 12-78 U/L Alkaline Phosphatase 131 45-117 U/L Troponin I < 0.015 0-0.045 ng/ml Total Protein 7.0 6.4-8.2 gm/dl Albumin 3.6 3.4-5.0 gm/dl Lipase 70 73-393 U/L Thyroid Stimulating Hormone (TSH) 0.434 0.300-4.500 uIu/ml Influenza Type A (RT-PCR) Neg for Influ A NEG Influenza Type B (RT-PCR) Neg for Influ B NEG Influenza Type A Antigen Neg for Influ A NEG Influenza Type B Antigen Neg for Influ B NEG Lactic Acid Level 1.1 0.4-2.0 mmol/L Heparin-PF4 Antibody Screen NEG NEG Test 10/24/17 08:37 10/24/17 08:45 Range/Units White Blood Count 5.32 4.8-10.8 K/uL Red Blood Count 4.28 4.7-6.1 M/uL Hemoglobin 13.2 14.0-18.0 g/dL Hematocrit 37.9 42-52 % Mean Corpuscular Volume 88.6 80-100 fL Mean Corpuscular Hemoglobin 30.8 25-34 pg Mean Corpuscular Hemoglobin Concent 34.8 32-36 g/dl Platelet Count 122 130-400 K/uL Mean Platelet Volume 9.5 7.4-10.4 fL Neutrophils (%) (Auto) 76.9 % Lymphocytes (%) (Auto) 8.6 % Monocytes (%) (Auto) 9.8 % Eosinophils (%) (Auto) 2.8 % Basophils (%) (Auto) 0.2 % Neutrophils # (Auto) 4.09 1.4-6.5 K/uL Lymphocytes # (Auto) 0.46 1.2-3.4 K/uL Monocytes # (Auto) 0.52 0.11-0.59 K/uL Eosinophils # (Auto) 0.15 0-0.5 K/uL Basophils # (Auto) 0.01 0-0.2 K/uL RDW Standard Deviation 42.5 36.4-46.3 fL RDW Coefficient of Variation 13.2 11.5-14.5 % Immature Granulocyte % (Auto) 1.7 % Immature Granulocyte # (Auto) 0.09 0.00-0.02 K/uL Toxic Granulation 1+ Dohle Bodies 2+ Sodium Level 138 136-145 mmol/L Potassium Level 3.8 3.5-5.1 mmol/L Chloride Level 107 98-107 mmol/L Carbon Dioxide Level 23 21-32 mmol/L Anion Gap 8.0 3-11 mmol/L Blood Urea Nitrogen 18 7-18 mg/dl Creatinine 0.66 0.60-1.40 mg/dl Est Creatinine Clear Calc Drug Dose 125.0 ml/min Estimated GFR () 116.0 Estimated GFR (Non- 100.0 BUN/Creatinine Ratio 27.9 10-20 Random Glucose 96 70-99 mg/dl Calcium Level 8.5 8.5-10.1 mg/dl Urine Color YELLOW Urine Appearance CLEAR CLEAR Urine pH 6.0 4.5-7.5 Urine Specific [place] 1.020 1.000-1.030 Urine Protein NEG NEG Urine Glucose (UA) NEG NEG Urine Ketones NEG NEG Urine Occult Blood NEG NEG Urine Nitrite NEG NEG Urine Bilirubin NEG NEG Urine Urobilinogen NEG NEG Urine Leukocyte Esterase NEG NEG Microbiology Results 10/23/17 Blood Culture, Received Pending 10/23/17 Blood Culture, Received Pending 10/24/17 Group A Streptococcus Screen - Final, Resulted SPECIMEN NEGATIVE FOR GROUP A BETA ST... 10/24/17 Group A Streptococcus Screen (CHRISTINE), Resulted Pending
[2017-10-24] MEDS: HYDROCODONE/HOMATROPINE SYRUP 5MG/1.5MG 5ML UDP PO PRN (17:31)
--- NOTE | 2017-10-24 19:45 | Medical Consult ---
Consultation Date of Consultation: Oct 24, 2017. 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 Bone marrow negative for lymphoma involvement. He received 1st cycle of chemotherapy with R-CHOP on 10/16/2014. He also received prophylactic Neulasta to prevent febrile neutropenia. Recently few days back he was seen by his PCPs for some nonspecific fever, chills, found to have possible pneumonia, he was started on doxycycline antibiotic as an outpatient but within 24 over he wasn't feeling quite well, had increasing hoarseness of voice, has some increasing sinus symptoms, now he' s admitted for further evaluation management. I saw him at bedside, he says that he is feeling better, no fever, hemodynamically he has remained stable, no increasing nausea vomiting, has hoarseness of voice, no significant dysphagia, he says that when he was at home , he was bringing plenty of fluid, had increased frequency of urination, because of increasing coughing, he could not sleep for the last several days. REVIEW OF SYSTEMS: GENERAL: No recent change in weight, generalized weakness and fatigue present, he says that he has some fever earlier which is gradually getting better. No chills.. SKIN: No skin rash, no bruising. HEAD: No headache, no dizziness. EYES: No change in the vision, no diplopia, EARS: No earache ,no tinnitus, NOSE: No epistaxis, No nasal discharge or stuffiness, MOUTH: No sores, no dysphagia, hoarseness of voice present, NECK: No lumps, No swelling in thyroid area. No stiffness. PULMONARY: increasing coughing present,, No shortness of breath, no hemoptysis, no chest pain, No wheezing. CARDIOVASCULAR: No anginal chest pain, no PND, no orthopnea. No palpitation, no leg edema. No syncope. GASTRIINTESTINAL: No abdominal pain, no nausea or vomiting. No diarrhea, No constipation. No blood in stool or black tarry stools. No abdominal distention. UROLOGIC: No burning urination. No hematuria. Increased frequency of urination present. MUSCULOSKELETAL: No joint pain, No joint swelling, no muscle weakness. HEMATOLOGIC: No anemia, no bleeding disorder, No bruising. No history of blood transfusion. NEUROLOGIC: No seizures, no focal weakness, no speech difficulty, No memory disturbances. No tingling or numbness of the extremities. PSYCHRIATRIC: No depression. No anxiety. No psychosis. PAST MEDICAL/SURGICAL HISTORY: - Follicle of lymphoma diagnosed recently. 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 - He had hernia surgery. - Recently he underwent port placement for chemotherapy treatment. SOCIAL HISTORY: non-smoker, denies any ETOH abuse. FAMILY HISTORY: not significant. MEDICATIONS: now started him on Levaquin. He is receiving allopurinol prophylaxis to prevent tumor lysis. ALLERGY: none PHYSICAL EXAMINATION: - Alert and oriented x3, well built man, not in any distress. - HEENT: no icterus, no pallor, Throat: Normal. - Neck: No palpable cervical lymphadenopathy. - Chest: clear to auscultation. - Abdomen: soft, nontender, no hepatomegaly, no splenomegaly. - No focal neuro deficit. - Extremities: no finger clubbing, no leg edema. LABS: - WBC 5800, H&H of 14.5/41, Platelet count of 126,000 (10/23/2017) - WBC 5300, H&H of 13.2/38, Platelet count of 122,000 (10/24/2017) - BUN/creatinine: 24/0.9, normal liver function test other than slightly irrelevant phosphorus 131. - Blood culture --> Pending. IMAGING: chest x-ray done on 10/23/2017 diminished lung volume with bibasilar opacities suggestive atelectasis. ASSESSMENT AND PLAN: 67-year-old male, a case of follicular lymphoma (grade 1/ grade 2) with some high-grade differentiation (grade 3, about 40%) involving the multiple lymph nodes, also has possible right pelvic bone involvement, he received 1st cycle of R-CHOP chemotherapy on 10/16/2017, also received prophylactic Neulasta to prevent the febrile neutropenia, now admitted hospital for upper respiratory infection with laryngitis, increasing coughing, low-grade fever, no neutropenia at this time, blood culture pending, hemodynamically stable other than some mild tachycardia, presently receiving Levaquin, does not appear to be sick. I reviewed with him regarding the recent the blood workup as well as the imaging studies, I am expecting improvement in his clinical condition in the next few days, hoarseness of voice also likely to improve in the next few days. He is due for 2nd cycle of chemotherapy on 11/06/2017. Will see him back in the clinic at that time. With his recent the chemotherapy, I am expecting drop in the platelet count, also expecting drop in the white blood cell count but he also received Neulasta so after drop in the white blood cell count, we may see significant rise in the WBC count. No further hematology recommendation. Thanks for the consultation. Chon Swenson MD Hem/Onc Past Medical/Surgical History Medical Problems: (1) Failure of outpatient treatment Status: Acute (2) Fall Status: Acute (3) Hematoma of neck Status: Acute (4) Lymphadenopathy Status: Acute (5) Pneumonia Status: Acute (6) Rib fractures Status: Acute Family History No pertinent family history Social History Smoking Status: Never Smoker Marital Status: Housing Status: lives with family Occupation Status: retired Allergies Coded Allergies: No Known Allergies (Unverified , 10/23/17) Current Inpatient Medications Current Inpatient Medications Medications (Trade) Dose Ordered Sig/Ely Route Start Time Stop Time Status Last Admin Dose Admin Acetaminophen (Tylenol Tab) 650 mg Q4H PRN PO 10/24/17 01:15 11/23/17 01:14 Levofloxacin (Consult) 1 ea UD PRN N/A 10/24/17 08:00 11/23/17 07:59 Allopurinol (Zyloprim Tab) 300 mg DAILY PO 10/24/17 08:00 11/23/17 08:59 10/24/17 08:47 300 MG Loratadine (Claritin Tab) 10 mg DAILY PO 10/24/17 08:00 11/23/17 08:59 10/24/17 08:47 10 MG Guaifenesin (Mucinex Contr Rel Tab) 600 mg Q12 PO 10/24/17 21:00 11/23/17 20:59 Tramadol HCl (Ultram Tab) 25 mg Q6H PRN PO 10/24/17 01:15 11/23/17 01:14 Levofloxacin (Levaquin Tab) 750 mg DAILY@11 PO 10/24/17 11:00 10/31/17 10:59 10/24/17 12:23 750 MG Ipratropium [place] (Atrovent 0.02% 0.5MG/2.5ML Neb) 0.5 mg Q4H PRN INH 10/24/17 06:30 11/23/17 06:29 Levalbuterol (Xopenex 1.25MG/ 0.5ML Neb) 1.25 mg Q4H PRN INH 10/24/17 06:30 11/23/17 06:29 Heparin Sodium (Porcine) (Heparin 100 Unit/ml 5ml Flush) 5 ml PRN PRN IV 10/24/17 09:15 11/23/17 09:14 10/24/17 12:50 5 ML Hydrocodone Bit/ Homatropine Methylb (Hycodan Syrup) 5 ml Q6H PRN PO 10/24/17 16:30 11/07/17 16:29 10/24/17 17:31 5 ML Physical Exam Date Time Temp Pulse Resp B/P (MAP) Pulse Ox O2 Delivery O2 Flow Rate FiO2 10/24/17 19:16 36.9 101 20 135/84 (101) 94 Room Air 10/24/17 16:00 Room Air 10/24/17 14:48 36.7 99 18 109/71 (84) 94 Nasal Cannula 10/24/17 14:42 36.4 90 18 124/74 (91) 93 10/24/17 12:32 Room Air 10/24/17 11:44 36.7 76 20 134/82 (99) 97 10/24/17 08:26 36.4 76 18 118/83 (95) 95 Room Air 10/24/17 01:10 36.5 104 22 123/74 95 Room Air 10/24/17 01:10 36.5 104 22 123/74 (90) 95 Room Air 10/24/17 00:49 36.9 105 20 113/75 95 10/23/17 23:47 109 20 118/76 94 Room Air 10/23/17 23:33 115 10/23/17 22:35 37.8 135 18 117/76 92 Room Air Laboratory Results Last 24 Hours Test 10/23/17 23:05 10/23/17 23:15 10/23/17 23:18 10/24/17 00:57 White Blood Count 5.82 K/uL Red Blood Count 4.67 M/uL Hemoglobin 14.5 g/dL Hematocrit 40.9 % Mean Corpuscular Volume 87.6 fL Mean Corpuscular Hemoglobin 31.0 pg Mean Corpuscular Hemoglobin Concent 35.5 g/dl Platelet Count 126 K/uL Mean Platelet Volume 9.7 fL Neutrophils (%) (Auto) 83.1 % Lymphocytes (%) (Auto) 5.8 % Monocytes (%) (Auto) 8.2 % Eosinophils (%) (Auto) 1.0 % Basophils (%) (Auto) 0.5 % Neutrophils # (Auto) 4.83 K/uL Lymphocytes # (Auto) 0.34 K/uL Monocytes # (Auto) 0.48 K/uL Eosinophils # (Auto) 0.06 K/uL Basophils # (Auto) 0.03 K/uL RDW Standard Deviation 41.9 fL RDW Coefficient of Variation 13.2 % Immature Granulocyte % (Auto) 1.4 % Immature Granulocyte # (Auto) 0.08 K/uL Toxic Granulation 1+ Toxic Vacuolation 1+ Dohle Bodies 2+ Prothrombin Time 11.5 SECONDS Prothromb Time International Ratio 1.1 Activated Partial Thromboplast Time 26.3 SECONDS Partial Thromboplastin Ratio 1.0 Sodium Level 135 mmol/L Potassium Level 3.6 mmol/L Chloride Level 101 mmol/L Carbon Dioxide Level 24 mmol/L Anion Gap 10.0 mmol/L Blood Urea Nitrogen 24 mg/dl Creatinine 0.95 mg/dl Est Creatinine Clear Calc Drug Dose 87.0 ml/min Estimated GFR () 95.6 Estimated GFR (Non- 82.5 BUN/Creatinine Ratio 25.0 Random Glucose 118 mg/dl Calcium Level 8.7 mg/dl Magnesium Level 2.0 mg/dl Total Bilirubin 0.8 mg/dl Direct Bilirubin 0.2 mg/dl Aspartate Amino Transf (AST/SGOT) 17 U/L Alanine Aminotransferase (ALT/SGPT) 29 U/L Alkaline Phosphatase 131 U/L Troponin I < 0.015 ng/ml Total Protein 7.0 gm/dl Albumin 3.6 gm/dl Lipase 70 U/L Thyroid Stimulating Hormone (TSH) 0.434 uIu/ml Influenza Type A (RT-PCR) Neg for Influ A Influenza Type B (RT-PCR) Neg for Influ B Influenza Type A Antigen Neg for Influ A Influenza Type B Antigen Neg for Influ B Lactic Acid Level 1.1 mmol/L Heparin-PF4 Antibody Screen NEG Test 10/24/17 08:37 10/24/17 08:45 White Blood Count 5.32 K/uL Red Blood Count 4.28 M/uL Hemoglobin 13.2 g/dL Hematocrit 37.9 % Mean Corpuscular Volume 88.6 fL Mean Corpuscular Hemoglobin 30.8 pg Mean Corpuscular Hemoglobin Concent 34.8 g/dl Platelet Count 122 K/uL Mean Platelet Volume 9.5 fL Neutrophils (%) (Auto) 76.9 % Lymphocytes (%) (Auto) 8.6 % Monocytes (%) (Auto) 9.8 % Eosinophils (%) (Auto) 2.8 % Basophils (%) (Auto) 0.2 % Neutrophils # (Auto) 4.09 K/uL Lymphocytes # (Auto) 0.46 K/uL Monocytes # (Auto) 0.52 K/uL Eosinophils # (Auto) 0.15 K/uL Basophils # (Auto) 0.01 K/uL RDW Standard Deviation 42.5 fL RDW Coefficient of Variation 13.2 % Immature Granulocyte % (Auto) 1.7 % Immature Granulocyte # (Auto) 0.09 K/uL Toxic Granulation 1+ Dohle Bodies 2+ Sodium Level 138 mmol/L Potassium Level 3.8 mmol/L Chloride Level 107 mmol/L Carbon Dioxide Level 23 mmol/L Anion Gap 8.0 mmol/L Blood Urea Nitrogen 18 mg/dl Creatinine 0.66 mg/dl Est Creatinine Clear Calc Drug Dose 125.0 ml/min Estimated GFR () 116.0 Estimated GFR (Non- 100.0 BUN/Creatinine Ratio 27.9 Random Glucose 96 mg/dl Calcium Level 8.5 mg/dl Urine Color YELLOW Urine Appearance CLEAR Urine pH 6.0 Urine Specific [place] 1.020 Urine Protein NEG Urine Glucose (UA) NEG Urine Ketones NEG Urine Occult Blood NEG Urine Nitrite NEG Urine Bilirubin NEG Urine Urobilinogen NEG Urine Leukocyte Esterase NEG
[2017-10-24] MEDS: GUAIFENESIN 600 MG TABCR PO SCH (20:39)
[2017-10-24] MEDS ORDERED: NURSING DECISION MEDICATION ORDER SCH (20:45)
[2017-10-24] MEDS ORDERED: COUGH DROP (SUGAR FREE) LOZ 24 LOZ/1 BOX LOZ ONE (20:51)
[2017-10-24] MEDS ORDERED: COUGH DROP (SUGAR FREE) LOZ 24 LOZ/1 BOX LOZ PRN (21:00)
[2017-10-25] VITALS (7 sets, daily range): BP systolic 108–137; BP diastolic 71–85; PULSE 79–96; TEMP 36.5–37; O2SAT 93–96
[2017-10-25] MEDS: HYDROCODONE/HOMATROPINE SYRUP 5MG/1.5MG 5ML UDP PO PRN (00:04)
[2017-10-25 05:37] LABS: HEMATOCRIT 38.1 % (42-52); HEMOGLOBIN 13.2 g/dL (14.0-18.0); MEAN CORPUSCULAR HEMOGLOBIN 30.8 pg (25-34); MEAN CORPUSCULAR HGB CONC 34.6 g/dl (32-36); MEAN PLATELET VOLUME 8.7 fL (7.4-10.4); PLATELET COUNT 128 K/uL (130-400); RED CELL DISTRIBUTION WIDTH CV 13.4 % (11.5-14.5); RED CELL DISTRIBUTION WIDTH SD 43.3 fL (36.4-46.3); WHITE BLOOD COUNT 6.04 K/uL (4.8-10.8)
[2017-10-25 06:04] LABS: CREATININE 0.86 mg/dl (0.60-1.40)
[2017-10-25 06:05] LABS: CALCIUM 8.9 mg/dl (8.5-10.1)
[2017-10-25] MEDS: LORATADINE 10 MG TAB PO SCH (08:23)
[2017-10-25] MEDS: GUAIFENESIN 600 MG TABCR PO SCH ×2 (08:24→19:47)
[2017-10-25] MEDS: ALLOPURINOL 300 MG TAB PO SCH (08:24)
[2017-10-25] MEDS: LEVOFLOXACIN 750 MG TAB PO SCH (12:12)
--- NOTE | 2017-10-25 17:25 | Progress Note ---
Internal Med Progress Note Date of Service: Oct 25, 2017. Provider Documentation: SUBJECTIVE: Seen and examined at bedside Cough, Hoarseness improving Denies any SOB, chest pain No other complaints OBJECTIVE: Vital Signs-as noted below Physical Exam: General Appearance:Moderately built and nourished, no apparent distress Head: normocephalic, Atraumatic Eyes: normal inspection, EOMI, PERRL Neck: supple, Trachea midline Respiratory/Chest: Normal breath sounds, CTA Cardiovascular: S1, S2, No murmur Abdomen/GI:Soft, Non tender, Bowel sounds present Extremities/Musculoskelatal:normal inspection, no edema Neurologic/Psych:AAOX3, grossly no focal neurological deficits Skin: normal color, warm Lab data as noted below. ASSESSMENT & PLAN: Sepsis: Atypical Pneumonia/Bronchitis/Laryngitis Immunocompromised patient Influenza negative Failed outpatient Doxycycline CXR:. No acute cardiopulmonary findings Continue Levaquin Normal Lactate levels IV fluids discontinued Nebs, Oxygen PRN H/O NHL: Ongoing chemotherapy Appreciate Oncology Input Next chemotherapy due on 11/06/17 Thrombocytopenia: Likely secondary to Chemotherapy HIT screen: Negative Monitor DVT px: SCDs RE thrombocytopenia Code Status: Full code Disposition: Expect to discharge home tomorrow if stable Vital Signs: Date Time Temp Pulse Resp B/P (MAP) Pulse Ox O2 Delivery O2 Flow Rate FiO2 10/25/17 15:24 37.0 96 16 116/80 (92) 93 Room Air 10/25/17 15:20 Room Air 10/25/17 08:30 93 Room Air 10/25/17 07:55 Room Air 10/25/17 07:49 36.5 79 18 137/85 (102) 93 Room Air 10/25/17 03:55 36.7 81 19 124/81 (95) 95 Room Air 10/25/17 00:00 Room Air 10/24/17 22:32 36.3 82 18 124/81 (95) 94 Nasal Cannula 10/24/17 19:16 36.9 101 20 135/84 (101) 94 Room Air Lab Results: Results Past 24 Hours Test 10/25/17 05:29 Range/Units White Blood Count 6.04 4.8-10.8 K/uL Red Blood Count 4.28 4.7-6.1 M/uL Hemoglobin 13.2 14.0-18.0 g/dL Hematocrit 38.1 42-52 % Mean Corpuscular Volume 89.0 80-100 fL Mean Corpuscular Hemoglobin 30.8 25-34 pg Mean Corpuscular Hemoglobin Concent 34.6 32-36 g/dl RDW Standard Deviation 43.3 36.4-46.3 fL RDW Coefficient of Variation 13.4 11.5-14.5 % Platelet Count 128 130-400 K/uL Mean Platelet Volume 8.7 7.4-10.4 fL Sodium Level 135 136-145 mmol/L Potassium Level 4.0 3.5-5.1 mmol/L Chloride Level 104 98-107 mmol/L Carbon Dioxide Level 26 21-32 mmol/L Anion Gap 5.0 3-11 mmol/L Blood Urea Nitrogen 13 7-18 mg/dl Creatinine 0.86 0.60-1.40 mg/dl Est Creatinine Clear Calc Drug Dose 96.0 ml/min Estimated GFR () 104.0 Estimated GFR (Non- 89.7 BUN/Creatinine Ratio 15.6 10-20 Random Glucose 80 70-99 mg/dl Calcium Level 8.9 8.5-10.1 mg/dl
[2017-10-26] MEDS: HYDROCODONE/HOMATROPINE SYRUP 5MG/1.5MG 5ML UDP PO PRN ×2 (03:45→09:57)
[2017-10-26 03:59] VITALS: BP 125/78; PULSE 85; TEMP 36.4; O2SAT 93
[2017-10-26 05:44] LABS: HEMATOCRIT 38.5 % (42-52); HEMOGLOBIN 13.4 g/dL (14.0-18.0); MEAN CELL VOLUME 88.9 fL (80-100); MEAN CORPUSCULAR HEMOGLOBIN 30.9 pg (25-34); MEAN CORPUSCULAR HGB CONC 34.8 g/dl (32-36); MEAN PLATELET VOLUME 9.3 fL (7.4-10.4); PLATELET COUNT 149 K/uL (130-400); RED CELL DISTRIBUTION WIDTH CV 13.2 % (11.5-14.5); RED CELL DISTRIBUTION WIDTH SD 42.4 fL (36.4-46.3); WHITE BLOOD COUNT 7.11 K/uL (4.8-10.8)
[2017-10-26 06:12] LABS: CALCIUM 8.6 mg/dl (8.5-10.1); CREATININE 0.91 mg/dl (0.60-1.40); POTASSIUM 4.1 mmol/L (3.5-5.1)
[2017-10-26 08:00] VITALS: O2SAT 94
[2017-10-26 08:09] VITALS: BP 122/78; PULSE 74; TEMP 37; O2SAT 94
[2017-10-26] MEDS: LORATADINE 10 MG TAB PO SCH (08:53)
[2017-10-26] MEDS: ALLOPURINOL 300 MG TAB PO SCH (08:53)
[2017-10-26] MEDS: GUAIFENESIN 600 MG TABCR PO SCH (08:53)
[2017-10-26 09:21] VITALS: O2SAT 94
[2017-10-26] MEDS: LEVOFLOXACIN 750 MG TAB PO SCH (11:35)
--- NOTE | 2017-10-26 14:22 | Progress Note ---
Internal Med Progress Note Date of Service: Oct 26, 2017. Provider Documentation: SUBJECTIVE: Seen and examined at bedside Less Cough Hoarseness much improved Denies any SOB, chest pain No other complaints OBJECTIVE: Vital Signs-as noted below Physical Exam: General Appearance:Moderately built and nourished, no apparent distress Head: normocephalic, Atraumatic Eyes: normal inspection, EOMI, PERRL Neck: supple, Trachea midline Respiratory/Chest: Normal breath sounds, CTA Cardiovascular: S1, S2, No murmur Abdomen/GI:Soft, Non tender, Bowel sounds present Extremities/Musculoskelatal:normal inspection, no edema Neurologic/Psych:AAOX3, grossly no focal neurological deficits Skin: normal color, warm Lab data as noted below. ASSESSMENT & PLAN: Sepsis: Atypical Pneumonia/Bronchitis/Laryngitis Immunocompromised patient Influenza negative Failed outpatient Doxycycline CXR:. No acute cardiopulmonary findings Continue Levaquin Normal Lactate levels Nebs, Oxygen PRN No wheezes on exam H/O NHL: Ongoing chemotherapy Appreciate Oncology Input Next chemotherapy due on 11/06/17 Thrombocytopenia: Likely secondary to Chemotherapy HIT screen: Negative Monitor Thrombocytes normalized DVT px: SCDs RE thrombocytopenia Code Status: Full code Disposition: Plan to discharge home today Follow up with your Primary Care Physician on 10/29/17 at 9:05AM Follow up with your Oncologist for chemotherapy on 11/06/17 Complete the antibiotic course as prescribed Seek immediate medical attention if your symptoms reoccur or worsen Vital Signs: Date Time Temp Pulse Resp B/P (MAP) Pulse Ox O2 Delivery O2 Flow Rate FiO2 10/26/17 09:21 94 Room Air 10/26/17 08:09 37.0 74 18 122/78 (93) 94 Room Air 10/26/17 08:00 94 Room Air 10/26/17 03:59 36.4 85 18 125/78 (94) 93 Room Air 10/26/17 00:00 Room Air 10/25/17 22:55 36.5 85 17 108/71 (83) 96 10/25/17 19:59 36.5 85 18 112/76 (88) 93 Room Air 10/25/17 19:00 93 Room Air 10/25/17 15:24 37.0 96 16 116/80 (92) 93 Room Air 10/25/17 15:20 Room Air Lab Results: Results Past 24 Hours Test 10/26/17 05:03 Range/Units White Blood Count 7.11 4.8-10.8 K/uL Red Blood Count 4.33 4.7-6.1 M/uL Hemoglobin 13.4 14.0-18.0 g/dL Hematocrit 38.5 42-52 % Mean Corpuscular Volume 88.9 80-100 fL Mean Corpuscular Hemoglobin 30.9 25-34 pg Mean Corpuscular Hemoglobin Concent 34.8 32-36 g/dl RDW Standard Deviation 42.4 36.4-46.3 fL RDW Coefficient of Variation 13.2 11.5-14.5 % Platelet Count 149 130-400 K/uL Mean Platelet Volume 9.3 7.4-10.4 fL Sodium Level 135 136-145 mmol/L Potassium Level 4.1 3.5-5.1 mmol/L Chloride Level 103 98-107 mmol/L Carbon Dioxide Level 27 21-32 mmol/L Anion Gap 5.0 3-11 mmol/L Blood Urea Nitrogen 22 7-18 mg/dl Creatinine 0.91 0.60-1.40 mg/dl Est Creatinine Clear Calc Drug Dose 90.4 ml/min Estimated GFR () 100.7 Estimated GFR (Non- 86.9 BUN/Creatinine Ratio 24.2 10-20 Random Glucose 101 70-99 mg/dl Calcium Level 8.6 8.5-10.1 mg/dl
[2017-10-26] MEDS ORDERED: LVQ750 PO (14:25)
[2017-10-26] MEDS ORDERED: GFNSR600 PO (14:25)
--- NOTE | 2017-10-26 14:29 | Discharge Summary ---
Discharge Summary Date of Service Oct 26, 2017. Discharge Summary Admission Date: Oct 24, 2017 at 00:34 Discharge Date: Oct 26, 2017 Discharge Disposition: Home Principal Diagnosis: Atypical Pneumonia/Bronchitis Procedures: CXR: 1. No acute cardiopulmonary findings. 2. Diminished lung volumes with bibasilar opacities suggestive of atelectasis. Consultations: Oncology Pending Studies/Follow-Up: Follow up with your Primary Care Physician on 10/29/17 at 9:05AM Follow up with your Oncologist for chemotherapy on 11/06/17 Complete the antibiotic course as prescribed Seek immediate medical attention if your symptoms reoccur or worsen Medication Reconciliation New Medications: Guaifenesin Ext Rel (Mucinex Ext Rel) 600 Mg Tabcr 600 MG PO Q12 for 4 Days, #8 EA Levofloxacin (Levofloxacin) 750 Mg Tab 750 MG PO DAILY@11 for 6 Days, #6 TAB Continued Medications: Acetaminophen (Tylenol) 325 Mg Tab 650 MG PO QID PRN for Pain or Fever, TAB Allopurinol (Zyloprim) 300 Mg Tab 300 MG PO DAILY start 3 days prior to chemo Loratadine (Claritin) 10 Mg Tab 10 MG PO DAILY Discontinued Medications: Doxycycline Hyclate (Doxycycline Hyclate) 100 Mg Tab 1 TAB PO BID for 7 Days Admission Information HPI (per Admitting provider): CHIEF COMPLAINT: Fever, chills, weakness. HISTORY OF PRESENT ILLNESS: History obtained from patient and records. Medical history significant for mood disorder (currently not on meds), recent diagnosis of non-Hodgkin's lymphoma ongoing chemotherapy. Recent confinement July 2017 for fall, multiple rib fractures. Patient had an incidental finding of mediastinal lymphadenopathy on imaging. Pathology showed non-Hodgkin's lymphoma. A-port placed 2 weeks ago. Chemotherapy subsequently, initiated. Last few days noted sinus congestion, cough, runny nose, urinary frequency, voice change. Denies aspiration. Fever, chills noted. Outpatient UA showed mixed natalia. A chest x-ray showed old right rib fracture, perihilar basilar opacity, atelectasis versus infiltrate. Patient started on doxycycline. Symptoms unimproved. Patient received Levaquin at the ER for pneumonia. Physical Exam (per Admitting): PHYSICAL EXAMINATION: VITAL SIGNS: Blood pressure 117/76, pulse rate 135, later 105, RR 18, temperature 37.8, sats 90 on room air. GENERAL: Noted to be pleasant, no respiratory distress, dysphonic. SKIN: Warm, normal color. HEENT: [place] palpebral conjuctivae. No ptosis. Dry mucosa. NECK: Supple, nontender. CHEST: Decreased effort noted. No tenderness HEART: Tachycardic. No murmur. ABDOMEN: Soft, nontender. EXTREMITIES: No edema. No tenderness. No gross deformity. NEUROLOGIC: Coherent. No gross focality. Hospital Course Sepsis: Atypical Pneumonia/Bronchitis/Laryngitis Immunocompromised patient Influenza negative Failed outpatient Doxycycline CXR:. No acute cardiopulmonary findings Continue Levaquin Normal Lactate levels Nebs, Oxygen PRN No wheezes on exam H/O NHL: Ongoing chemotherapy Appreciate Oncology Input Next chemotherapy due on 11/06/17 Thrombocytopenia: Likely secondary to Chemotherapy HIT screen: Negative Monitor Thrombocytes normalized DVT px: SCDs RE thrombocytopenia Code Status: Full code Disposition: Plan to discharge home today Follow up with your Primary Care Physician on 10/29/17 at 9:05AM Follow up with your Oncologist for chemotherapy on 11/06/17 Complete the antibiotic course as prescribed Seek immediate medical attention if your symptoms reoccur or worsen Total time spent on discharge = 33 minutes This includes examination of the patient, discharge planning, medication reconciliation, and communication with other providers. Discharge Instructions Discharge Instructions Date of Service Oct 26, 2017. Admission Reason for Admission: Sepsis Discharge Discharge Diagnosis / Problem: Atypical Pneumonia/Bronchitis Discharge Goals Goal(s): Decrease discomfort, Improve function Activity Recommendations Activity Limitations: resume your previous activity Exercise/Sports Limitations: as tolerated . Instructions / Follow-Up Instructions / Follow-Up Follow up with your Primary Care Physician on 10/29/17 at 9:05AM Follow up with your Oncologist for chemotherapy on 11/06/17 Complete the antibiotic course as prescribed Seek immediate medical attention if your symptoms reoccur or worsen Current Hospital Diet Patient's current hospital diet: Regular Diet Discharge Diet Recommended Diet: Regular Diet Pending Studies Studies pending at discharge: no Medical Emergencies . Who to Call and When: Medical Emergencies: If at any time you feel your situation is an emergency, please call 911 immediately. . Non-Emergent Contact Non-Emergency issues call your: Primary Care Provider Call Non-Emergent contact if: you have a fever, your pain is not controlled, your pain is worsening, your pain is unusual for you, your pain is concerning you, you have any medication questions . . "Provider Documentation" section prepared by Shin Ye. . VTE Core Measure Inpt VTE Proph given/why not?: SCD's
[2017-10-26 14:33] VITALS: BP 122/78; PULSE 85; TEMP 37; O2SAT 94
== END 2017-10-26 15:48 | disposition home or self-care (01) | DRG 871 ==
LOC: C.EDB 22:25 → C.4E 10-24 00:34 → EDBEDREQSVC 10-24 00:35 → ENRESERV 10-24 00:41
PROVIDERS: ADMIT Internal Medicine; ATTEND Internal Medicine
DX: A41.9 Sepsis, unspecified organism (principal); J18.9 Pneumonia, unspecified organism; C82.01 Follicular lymphoma grade I, lymph nodes of head, face, and neck; C82.02 Follicular lymphoma grade I, intrathoracic lymph nodes; C82.03 Follicular lymphoma grade I, intra-abdominal lymph nodes; J40 Bronchitis, not specified as acute or chronic; J04.0 Acute laryngitis; Y95 Nosocomial condition; D69.59 Other secondary thrombocytopenia; T45.1X5A Adverse effect of antineoplastic and immunosuppressive drugs, initial encounter; Z79.899 Other long term (current) drug therapy; Z83.3 Family history of diabetes mellitus

== ENCOUNTER → 2017-12-31 | Outpatient (CLI) | payer OTHER ==
[~2017-12-31] MED LIST changes: +ALLO300T2 PO; +CLR10 PO; -DOXY1TAB6 PO; +GFNSR600 PO; +LVQ750 PO
--- NOTE | 2017-12-31 12:23 | DIAGNOSTIC IMAGING REPORT ---
PET/CT HISTORY: LYMPHOMA TECHNIQUE: PET/CT was performed from the base of the skull through the pelvis following the intravenous administration of 12 mCi of F18-FDG. Non-contrast CT imaging was performed over the same range without breath-hold for attenuation correction of PET images and anatomic correlation, but not for primary interpretation as it is not of standard diagnostic quality. CT DOSE: COMPARISON: Chest CT 08/07/2017. CT neck 09/23/2017. FINDINGS: HEAD AND NECK: Interval decrease in size in the cervical lymph nodes compared to the prior studies. For comparative purposes the dominant right posterior cervical chain lymph node currently measures 9 mm, previously measuring 2.1 cm. The cervical lymph nodes demonstrate minimal FDG uptake with SUV max less than 2. Salivary gland uptake is likely physiologic. CHEST: Interval decrease in size in the mediastinal and hilar lymphadenopathy. For comparative purposes the dominant right peritracheal lymph node currently measures 1.6 x 0.7 cm. This previously measured 2.6 x 1.7 cm. These mediastinal and hilar lymph nodes demonstrate mild FDG uptake with SUV max of 3. Focal right lower lobe consolidation persists. This demonstrates minimal FDG uptake with an SUV max of 1.7. 2. 2.4. ABDOMEN/PELVIS: Below the diaphragm, tracer is distributed physiologically in the gastrointestinal and genitourinary tracts. Significant decrease in size in the mesenteric lymph nodes. Dominant mesenteric lymph node measures 1.4 x 1.1 cm, previous measuring 3.1 x 1.4 cm. These do not demonstrate significant FDG uptake at this time. A few mildly enlarged retroperitoneal lymph nodes do not demonstrate significant FDG uptake. Fat-containing small left inguinal hernia. MUSCULOSKELETAL: There is no FDG-avid or destructive bone lesion. IMPRESSION: 1. Interval decrease in size in the lymph nodes within the neck, chest, and abdomen as described above. These demonstrate minimal to mild FDG uptake consistent with minimal residual disease in the setting of the patient's lymphoma. 2. Stable consolidation within the right lower lobe demonstrating minimal FDG uptake. Electronically signed by: Fernando Russo M.D. 12/31/2017 12:22 PM Dictated Date/Time: 12/31/2017 11:58 AM
== END | disposition home or self-care (01) ==
LOC: C.PET 08:46
PROVIDERS: ATTEND Physician Assistant
DX: C82.18 Follicular lymphoma grade II, lymph nodes of multiple sites (principal)

== ENCOUNTER → 2018-04-15 | Outpatient (CLI) | payer OTHER ==
--- NOTE | 2018-04-15 10:10 | DIAGNOSTIC IMAGING REPORT ---
PET/CT SKULL-THIGH CLINICAL HISTORY: LYMPHOMA COMPARISON STUDY: 12/31/2017 FINDINGS: The patient was injected with 13.8 mCi of F 18 labeled FDG. Following the standard induction phase, PET/CT scanning is performed from the skull base to the upper thigh region. Within the neck, there is prominent salivary gland activity, similar to the preceding study. There are no pathologically enlarged cervical lymph nodes by size criteria. There is no definitive pathologic uptake within the cervical nodes. Within the chest, there is no pathologic rubens enlargement. The previously described right paratracheal lymph node continues to measure 7 mm in short axis which is not pathologically enlarged. No uptake is no greater than background activity. There is continued evidence for right lower lobe atelectasis/consolidation. Within the abdomen, the spleen is at the upper limits of normal in size measuring 12 cm. There is no pathologic rubens activity. There is physiologic urinary tract and bowel activity. Incidental note is made of hepatic cysts. There are postsurgical changes are prior hernia repair. There is a fat-containing left inguinal hernia. There is no pathologic skeletal activity. IMPRESSION: 1. No evidence of pathologic rubens activity 2. No evidence of pathologic adenopathy by size criteria 3. Stable right lower lobe pulmonary atelectasis/consolidation Electronically signed by: Renny Boggs M.D. 04/15/2018 10:09 AM Dictated Date/Time: 04/15/2018 9:59 AM
== END | disposition home or self-care (01) ==
LOC: C.PET 07:05
PROVIDERS: ATTEND Physician Assistant
DX: C82.18 Follicular lymphoma grade II, lymph nodes of multiple sites (principal)